=== PATIENT | female | born 1995 | race American Indian/Alaskan Native ===

== ENCOUNTER 2018-11-21 20:11 | Emergency (ER) | payer OTHER ==
--- NOTE | 2018-11-21 20:24 | Emergency Department Report ---
Blank Doc - Documentation Documentation: This is a 23-year-old female that presents with pelvic pain, vaginal discharge and irritation. This initial assessment/diagnostic orders/clinical plan/treatment(s) is/are subject to change based on patient's health status, clinical progression and re- assessment by fellow clinical providers in the ED. Further treatment and workup at subsequent clinical providers discretion. Patient/guardians urged not to elope from the ED as their condition may be serious if not clinically assessed and managed. Initial orders include: 1- Patient sent to [facility] for further evaluation and treatment 2- UA 3- wet prep
[2018-11-21 21:08] LABS: HCG Qualitative,Urine Positive (Negative)
[2018-11-21 21:14] LABS: Bacteria,Urine 1+ /HPF (Negative); Bilirubin,Urine NEG (Negative); Blood,Urine NEG (Negative); Color,Urine Yellow (Yellow); Mucus,Urine 3+ /HPF; Protein,Urine <15 mg/dL mg/dL (Negative)
--- NOTE | 2018-11-21 22:37 | Emergency Department Report ---
ED General Adult HPI - General Chief complaint: Abdominal Pain Stated complaint: ABDOMINAL PAIN Time Seen by Provider: 11/21/18 20:22 Source: patient Mode of arrival: Ambulatory Limitations: No Limitations - History of Present Illness Initial comments: Pt is a 23 yo female who presents to the ED with c/o N/V that began a couple of days ago. She also has suprapubic pressure. The patient is concerned she is and states her LNMP was in September. The patient also says that she has had green/clear discharge. She denies any abd pain, urinary sx or fever. The patient is sexually active and does not use protection. MD Complaint: N/V Onset/Timin -: days(s) Treatments Prior to Arrival: none - Related Data Previous Rx's Medication Instructions Recorded Last Taken Type Vit No.130/Iron/Folic 1 each PO DAILY #90 tablet 11/22/18 Unknown Rx [ Tablet] metroNIDAZOLE [Flagyl] 500 mg PO BID 7 Days #14 tab 11/22/18 Unknown Rx Allergies Allergy/AdvReac Type Severity Reaction Status Date / Time No Known Allergies Allergy Unverified 11/21/18 20:27 ED Review of Systems ROS: Stated complaint: ABDOMINAL PAIN Other details as noted in HPI Comment: All other systems reviewed and negative ED Past Medical Hx - Past Medical History Previous Medical History?: No - Surgical History Past Surgical History?: No - Social History Smoking Status: Never Smoker Substance Use Type: None - Medications Home Medications: Home Medications Medication Instructions Recorded Confirmed Last Taken Type Vit No.130/Iron/Folic 1 each PO DAILY #90 tablet 11/22/18 Unknown Rx [ Tablet] metroNIDAZOLE [Flagyl] 500 mg PO BID 7 Days #14 tab 11/22/18 Unknown Rx ED Physical Exam - General Limitations: No Limitations General appearance: alert, in no apparent distress - Head Head exam: Present: atraumatic, normocephalic - Eye Eye exam: Present: normal appearance - ENT ENT exam: Present: mucous membranes moist - Respiratory Respiratory exam: Present: normal lung sounds bilaterally. Absent: respiratory distress, wheezes, rales, rhonchi, stridor, chest wall tenderness, decreased breath sounds, prolonged expiratory - Cardiovascular Cardiovascular Exam: Present: regular rate, normal rhythm. Absent: systolic murmur, rubs, gallop - GI/Abdominal GI/Abdominal exam: Present: soft, normal bowel sounds. Absent: distended, te nderness, guarding, rebound, rigid - Speculum exam: Present: vaginal discharge, cervical discharge (moderate amount green/white, foul odor, cervix normal appearance), other (RN present during pelvic examination ). Absent: erythema, vaginal bleeding, foreign body, laceration Bi-manual exam: Present: normal bi-manual exam. Absent: cervical motion tendernes, adnexal tenderness, adnexal mass, uterine enlargement - Neurological Exam Neurological exam: Present: alert, oriented X3 - Psychiatric Psychiatric exam: Present: normal affect, normal mood ED Course Vital Signs 11/21/18 11/21/18 11/22/18 20:21 23:59 02:13 Temperature 99 F 98.4 F Pulse Rate 64 69 54 L Respiratory 16 16 16 Rate Blood Pressure 104/54 Blood Pressure 95/62 103/53 [Right] O2 Sat by Pulse 100 100 96 Oximetry ED Medical Decision Making - Lab Data Laboratory Results - last 24 hr 11/21/18 11/21/18 20:20 23:01 HCG, Quant 4138 H Urine Color Yellow Urine Turbidity Clear Urine pH 5.0 Ur Specific [place] 1.027 Urine Protein <15 mg/dl Urine Glucose (UA) Neg Urine Ketones Neg Urine Blood Neg Urine Nitrite Neg Ur Reducing Substances Not Reportable Urine Bilirubin Neg Urine Ictotest Not Reportable Urine Urobilinogen 2.0 Ur Leukocyte Esterase Neg Urine WBC (Auto) 2.0 Urine RBC (Auto) 2.0 U Epithel Cells (Auto) 3.0 Urine Bacteria (Auto) 1+ Urine Mucus 3+ Urine HCG, Qual Positive A - Radiology Data Radiology results: report reviewed, image reviewed transvaginal US: The myometrium appears uniform. There is an intrauterine gestational sac. A small yolk sac is visible. The mean gestational sac diameter is 7.6 mm. This indicates a menstrual age of 5 weeks 4 days. The estimated date of confinement is 07/20/2019. The right ovary appears normal in size and has normal color flow signal. The left ovary appears normal in size and also has normal color flow signal. There are small follicles in the left ovary. - Medical Decision Making Pt presents with N/V, suprapubic pressure, vaginal discharge, and concern for . test was positive, hcg quant ordered as well which was also positive, OB US was performed including transvaginal, pt is approximately 5 weeks with intrauterine gestational sac present and yolk sac. Wet prep showed presence of clue cells, pt was given dose of flagyl in the ED and given prescription, also pt given prescription for vitamins. Pt advised to follow up with OB doctor in the next couple of days. Critical care attestation.: If time is entered above; I have spent that time in minutes in the direct care of this critically ill patient, excluding procedure time. ED Disposition Clinical Impression: Bacterial vaginosis, test positive, with 5 completed weeks gestation Disposition: - TO HOME OR SELFCARE Is pt being admited?: No Does the pt Need Aspirin: No Condition: Stable Instructions: (ED), Bacterial Vaginosis (ED) Additional Instructions: Follow up with OB in the next couple of days. Take all medication as prescribed. Do not drink alcohol while taking medication or while . Prescriptions: metroNIDAZOLE [Flagyl] 500 mg PO BID 7 Days #14 tab Vit No.130/Iron/Folic [ Tablet] 1 each PO DAILY #90 tablet Referrals: [facility] MD THONY [Primary Care Provider] - 3-5 Days Forms: STI Treatment and Prevention Time of Disposition: 01:46 Print Language: GREENLANDIC
--- NOTE | 2018-11-21 23:58 | Ultrasound Report ---
PROCEDURE: Transabdominal obstetrical ultrasound. TECHNIQUE: Real-time transabdominal sonography of the uterus, placenta, amniotic fluid, adnexa, and fetus was performed with image documentation. Measurements were obtained to determine age/size. M-mode Doppler was used to document heartbeat. ADDITIONAL GESTATION: None. HISTORY: (+) urine preg COMPARISONS: None. FINDINGS: Image quality is decreased because the patient's bladder was not fully distended. The uterus measures 8.6 cm x 5.0 cm x 4.9 cm. The myometrium appears fairly uniform. There is a small intrauterine gesta tional sac. The mean gestational sac diameter measures 7.9 mm. This indicates a menstrual age of 5 we eks 4 days. The estimated date of confinement is 07/20/2019. A definite pole was not visible. Tr ansvaginal scanning may be useful. The right ovary appears normal. There is normal color flow signal. The left ovary is not identified. IMPRESSION: Early intrauterine gestational sac. This document is electronically signed by Dexter Jane MD., November 21 2018 11:57:05 PM ET
--- NOTE | 2018-11-22 00:02 | Ultrasound Report ---
PROCEDURE: Transvaginal obstetrical ultrasound. TECHNIQUE: Real-time transvaginal sonography of the uterus, placenta, amniotic fluid, adnexa, and fe tus was performed with image documentation. Measurements were obtained to determine age/size. M -mode Doppler was used to document heartbeat. HISTORY: Pelvic pain. COMPARISONS: None. FINDINGS: The myometrium appears uniform. There is an intrauterine gestational sac. A small yolk sac is visible . The mean gestational sac diameter is 7.6 mm. This indicates a menstrual age of 5 weeks 4 days. The estimated date of confinement is 07/20/2019. The right ovary appears normal in size and has normal col or flow signal. The left ovary appears normal in size and also has normal color flow signal. There ar e small follicles in the left ovary. IMPRESSION: Early intrauterine gestational sac. Follow-up recommended. This document is electronically signed by Dexter Jane MD., November 22 2018 12:00:18 AM ET
[2018-11-22] MEDS ORDERED: FLAGYL PO ONE (01:51)
[2018-11-22 02:14] VITALS: BP 103/53
== END 2018-11-22 02:13 | disposition home or self-care (01) ==
LOC: ED 20:11
DX: O23.591 Infection of other part of genital tract in pregnancy, first trimester (principal); B96.89 Other specified bacterial agents as the cause of diseases classified elsewhere; O21.8 Other vomiting complicating pregnancy; Z3A.01 Less than 8 weeks gestation of pregnancy
CPT/HCPCS: 36415; 76801; 76817; 81001; 81025; 84702; 87210; 87591

== ENCOUNTER 2018-11-29 23:04 | Emergency (ER) | payer OTHER ==
[2018-11-29 23:13] VITALS: BP 99/56
[2018-11-30] MEDS ORDERED: BENADRYL PO ONE (01:01)
[2018-11-30] MEDS ORDERED: PEPCID PO ONE (01:01)
[2018-11-30] MEDS ORDERED: DECADRON IM ONE (01:01)
--- NOTE | 2018-11-30 01:07 | Emergency Department Report ---
ED Rash HPI - HPI Chief Complaint: Skin Rash Stated Complaint: 7 WEEKS HIVES Time Seen by Provider: 11/30/18 00:53 Rash Symptoms: Yes Itching, No Facial Swelling, No Tongue/Oral Swelling, No Breathing Difficulties, No Choking Sensation, No Wheezing/Dyspnea, No Peeling, No Blistering, No Fever, No Lightheaded Severity: moderate Other History: Patient. She is is is being is Female who is 7 weeks who presents for allergic reaction states subjective hives with erythema dry. Skin the chest bilateral upper extremities show ED Review of Systems ROS: Stated complaint: 7 WEEKS HIVES Other details as noted in HPI Constitutional: denies: chills, fever Eyes: denies: eye pain, eye discharge, vision change ENT: as per HPI (is). denies: ear pain, throat pain Respiratory: denies: cough, shortness of breath, wheezing Cardiovascular: denies: chest pain, palpitations Endocrine: no symptoms reported Gastrointestinal: denies: abdominal pain, nausea, diarrhea Genitourinary: denies: urgency, dysuria, discharge Musculoskeletal: denies: back pain, joint swelling, arthralgia Skin: rash, pruritus. denies: lesions Neurological: denies: headache, weakness, paresthesias Psychiatric: denies: anxiety, depression Hematological/Lymphatic: denies: easy bleeding, easy bruising ED Past Medical Hx - Past Medical History Previous Medical History?: No - Surgical History Past Surgical History?: No - Social History Smoking Status: Never Smoker Substance Use Type: None - Medications Home Medications: Home Medications Medication Instructions Recorded Confirmed Last Taken Type Vit No.130/Iron/Folic 1 each PO DAILY #90 tablet 11/22/18 Unknown Rx [ Tablet] metroNIDAZOLE [Flagyl] 500 mg PO BID 7 Days #14 tab 11/22/18 Unknown Rx EPINEPHrine [Epipen 2-Tony] 0.3 mg IJ PRN PRN #1 auto.injct 11/30/18 Unknown Rx Famotidine [Pepcid] 20 mg PO BID PRN #30 tablet 11/30/18 Unknown Rx Triamcinolone Aceton 0.1% (Nf) 1 applic TP BID 14 Days #1 tube 11/30/18 Unknown Rx [Kenalog (NF)] diphenhydrAMINE [Benadryl CAP] 25 mg PO Q6HR PRN #30 capsule 11/30/18 Unknown Rx predniSONE [Deltasone] 40 mg PO QDAY 5 Days #10 tab 11/30/18 Unknown Rx Rash Exam - Exam General: Vital signs noted. No distress. Alert and acting appropriately. HEENT: No Periorbital Edema, No Conjuctival Injection, No Chemosis, No Perioral Edema, No Tongue Edema, No Uvular Edema, No Compromised Airway, No Drooling Lungs: Yes Good Air Exchange (Normal Breath Sounds), No Wheezes, No Ronchi, No Stridor, No Cough, No Labored Respirations, No Retractions, No Use of Accessory Muscles, No Other Abnormal Lung Sounds Heart: Yes Regular, No Murmur (normal limits because) Skin: Yes Urticarial Rash, Yes Excoriations, Yes Erythema, No Maculopapular Rash, No Morbilliform rash, No Bulla(e), No Weeping, No Tenderness, No Edema, No Encrustations, No Other Other: Positive: Abdomen Normal, Neurologic Normal, Musculoskeletal Normal ED Course Vital Signs 11/29/18 11/29/18 23:11 23:22 Temperature 99.1 F 99.1 F Pulse Rate 83 84 Respiratory 18 Rate Blood Pressure 99/56 99/56 O2 Sat by Pulse 100 Oximetry ED Medical Decision Making - Medical Decision Making this is likely contact dermatitis plan: prednisone, benadryl, pepcid, follow up with dermatology in 2 days pt given instruction on epipen, has stefan of [facility] advised to present to walk in center in 2 days for inhouse referral to Dermatology clinic as fastest process to see [facility], pt give locar referal to Dermatology [facility] will call in two days to confirm appointment. Critical care attestation.: If time is entered above; I have spent that time in minutes in the direct care of this critically ill patient, excluding procedure time. ED Disposition Clinical Impression: Contact dermatitis Qualifiers: Contact dermatitis type: allergic Contact dermatitis trigger: unspecified trigger Qualified Code(s): L23.9 - Allergic contact dermatitis, unspecified cause Disposition: DC-01 TO HOME OR SELFCARE Is pt being admited?: No Does the pt Need Aspirin: No Condition: Stable Instructions: Contact Dermatitis (ED) Prescriptions: diphenhydrAMINE [Benadryl CAP] 25 mg PO Q6HR PRN #30 capsule PRN Reason: allergy symptoms itching predniSONE [Deltasone] 40 mg PO QDAY 5 Days #10 tab EPINEPHrine [Epipen 2-Tony] 0.3 mg IJ PRN PRN #1 auto.injct PRN Reason: sever allergy symptoms Triamcinolone Aceton 0.1% (Nf) [Kenalog (NF)] 1 applic TP BID 14 Days #1 tube Famotidine [Pepcid] 20 mg PO BID PRN #30 tablet PRN Reason: allergy symptoms Referrals: [facility] THONY [Primary Care Provider] - 3-5 Days ZACHERY GAINES MD [Staff Physician] - 3-5 Days
== END 2018-11-30 01:57 | disposition home or self-care (01) ==
LOC: ED 23:04
DX: O26.891 Other specified pregnancy related conditions, first trimester (principal); L25.9 Unspecified contact dermatitis, unspecified cause; Z3A.01 Less than 8 weeks gestation of pregnancy
CPT/HCPCS: 99282

== ENCOUNTER 2019-02-06 01:02 | Emergency (ER) | payer OTHER ==
[2019-02-06 01:46] LABS: Basophils % (Auto) 0.5 % (0.0-1.8); Eosinophils # (Auto) 0.2 K/mm3 (0.0-0.4); Eosinophils % (Auto) 3.3 % (0.0-4.3); Hematocrit 26.6 % (30.3-42.9); Hemoglobin 8.8 gm/dl (10.1-14.3); Lymphocytes # (Auto) 1.5 K/mm3 (1.2-5.4); Lymphocytes % (Auto) 29.4 % (13.4-35.0); Mean Corpuscular HGB Conc 33 % (30-34); Mean Corpuscular Volume 81 fl (79-97); Monocytes # (Auto) 0.3 K/mm3 (0.0-0.8); Monocytes % (Auto) 5.9 % (0.0-7.3); Platelet Count 186 K/mm3 (140-440); Red Cell Distribution Width 16.9 % (13.2-15.2)
[2019-02-06 01:49] LABS: Bilirubin,Urine NEG (Negative); Blood,Urine NEG (Negative); Color,Urine Yellow (Yellow); Mucus,Urine 3+ /HPF; Protein,Urine <15 mg/dL mg/dL (Negative)
[2019-02-06 02:09] LABS: Alanine Aminotransferase 6 units/L (7-56); Albumin 3.4 g/dL (3.9-5); Calcium 8.4 mg/dL (8.4-10.2); Hemolysis Index 0
[2019-02-06 02:54] LABS: BUN/Creatinine Ratio 18; Blood Urea Nitrogen 9 mg/dL (7-17)
[2019-02-06] MEDS ORDERED: TYLENOL PO ONE (04:05)
[2019-02-06 05:05] VITALS: BP 107/52
--- NOTE | 2019-02-06 05:06 | Ultrasound Report ---
PROCEDURE: US OB >= 14 WEEKS FETUS TECHNIQUE: Real-time transabdominal sonography of the uterus, placenta, amniotic fluid, adnexa, and fetus was performed with image documentation. Measurements were obtained to determine age/size. M-mode Doppler was used to document heartbeat. ADDITIONAL GESTATION: None. HISTORY: preg, abd pain COMPARISONS: 11/21/2018 . FINDINGS: There is a single viable intrauterine in cephalic presentation with an estimated gestationa l age of 16 weeks 5 days based on sonographic criteria. The heart rate is 143 BPM. The cervix i s closed. The cervical length is 6.4 cm. The placenta is anterior and low-lying in position. It is gr dereck 0. The amniotic fluid volume is grossly normal. A complete survey of organs was not obtaine d. The EDC is 07/19/2019. IMPRESSION: Single live intrauterine gestation at approximately 16 weeks 5 days. . EDC by US 019. The placenta is anterior and low-lying in position. . This document is electronically signed by Karri Fabian MD., Feb 06 2019 05:04:42 AM ET
--- NOTE | 2019-02-06 05:30 | Emergency Department Report ---
HPI - General Chief Complaint: Abdominal Pain Time Seen by Provider: 02/06/19 03:50 - HPI HPI: 23-year-old -[place] female presents to the emergency department with a complaint of some lower abdominal and/or pelvic discomfort, along with some malodorous white vaginal discharge, while being . The patient is unsure exactly how far along she is with this but her last menstrual cycle was October 12. With this she is with 1 previous . She is on vitamins. She does not have any [facility] at this time. She has not taken anything for her symptoms prior to arrival. No recent travel or sick contacts at home. She denies any past history of any STDs. ED Past Medical Hx - Past Medical History Previous Medical History?: No - Surgical History Past Surgical History?: No - Social History Smoking Status: Current Every Day Smoker Substance Use Type: None - Medications Home Medications: Home Medications Medication Instructions Recorded Confirmed Last Taken Type Vit No.130/Iron/Folic 1 each PO DAILY #90 tablet 11/22/18 Unknown Rx [ Tablet] metroNIDAZOLE [Flagyl] 500 mg PO BID 7 Days #14 tab 11/22/18 Unknown Rx EPINEPHrine [Epipen 2-Tony] 0.3 mg IJ PRN PRN #1 auto.injct 11/30/18 Unknown Rx Famotidine [Pepcid] 20 mg PO BID PRN #30 tablet 11/30/18 Unknown Rx Triamcinolone Aceton 0.1% (Nf) 1 applic TP BID 14 Days #1 tube 11/30/18 Unknown Rx [Kenalog (NF)] diphenhydrAMINE [Benadryl CAP] 25 mg PO Q6HR PRN #30 capsule 11/30/18 Unknown Rx predniSONE [Deltasone] 40 mg PO QDAY 5 Days #10 tab 11/30/18 Unknown Rx Clindamycin 2% [Clindamycin 2% VAG 1 applicatio VG QHS 7 Days cream 02/06/19 Unknown Rx CREAM] ED Review of Systems ROS: Stated complaint: ABD PAIN/DISCHARGE Other details as noted in HPI Constitutional: denies: chills, fever Eyes: denies: eye pain, vision change ENT: denies: ear pain, throat pain Respiratory: denies: cough, shortness of breath Cardiovascular: denies: chest pain, palpitations Gastrointestinal: abdominal pain. denies: vomiting Genitourinary: discharge. denies: dysuria Musculoskeletal: denies: back pain, arthralgia Skin: denies: rash, lesions Neurological: denies: headache, weakness Physical Exam - Physical Exam Vital Signs: Vital Signs 02/06/19 02/06/19 01:05 05:04 Temperature 98.6 F 98.1 F Pulse Rate 85 72 Respiratory 18 16 Rate Blood Pressure 104/64 Blood Pressure 107/52 [Right] O2 Sat by Pulse 100 99 Oximetry Physical Exam: GENERAL: The patient is well-developed well-nourished. HENT: Normocephalic. Atraumatic. Patient has moist mucous membranes. EYES: Extraocular motions are intact. NECK: Supple. Trachea is midline. CHEST/LUNGS: Clear to auscultation. There is no respiratory distress noted. HEART/CARDIOVASCULAR: Regular. There is no tachycardia. There is no murmur. ABDOMEN: Abdomen is soft. Patient has normal bowel sounds. There is no abdominal distention. SKIN: Skin is warm and dry. NEURO: The patient is awake, alert, and oriented. The patient is cooperative. The patient has no focal neurologic deficits. The patient has normal speech. MUSCULOSKELETAL: There is no tenderness or deformity. There is no limitation range of motion. There is no evidence of acute injury. : There is a moderate amount of white malodorous discharge seen within the vagina. No vaginal bleeding seen. ED Course Vital Signs 02/06/19 02/06/19 01:05 05:04 Temperature 98.6 F 98.1 F Pulse Rate 85 72 Respiratory 18 16 Rate Blood Pressure 104/64 Blood Pressure 107/52 [Right] O2 Sat by Pulse 100 99 Oximetry ED Medical Decision Making - Lab Data Result diagrams: 02/06/19 01:35 02/06/19 01:35 - Radiology Data Radiology results: report reviewed PROCEDURE: US OB >= 14 WEEKS FETUS TECHNIQUE: Real-time transabdominal sonography of the uterus, placenta, amniotic fluid, adnexa, and fetus was performed with image documentation. Measurements were obtained to determine age/size. M-mode Doppler was used to document heartbeat. ADDITIONAL GESTATION: None. HISTORY: preg, abd pain COMPARISONS: 11/21/2018 . FINDINGS: There is a single viable intrauterine in cephalic presentation with an estimated gestational age of 16 weeks 5 days based on sonographic criteria. The heart rate is 143 BPM. The cervix is closed. The cervical length is 6.4 cm. The placenta is anterior and low-lying in position. It is grade 0. The amniotic fluid volume is grossly normal. A complete survey of organs was not obtained. The EDC is 07/19/2019. IMPRESSION: Single live intrauterine gestation at approximately 16 weeks 5 days. . EDC by US 07/19/2019. The placenta is anterior and low-lying in position. . This document is electronically signed by Karri Fabian MD., Feb 06 2019 05:04:42 AM ET Transcribed By: RB Dictated By: KARRI FABIAN MD Electronically Authenticated By: KARRI FABIAN MD Signed Date/Time: 02/06/19 7680 - Medical Decision Making Patient presents with some lower abdominal and pelvic pain, along with some malodorous discharge, while . Wet prep was positive for BV. She will be treated with clindamycin vaginal cream. Gonorrhea and chlamydia has been sent out, and if positive the patient will be contacted and new prescriptions will be added. There has been no vaginal bleeding. She was given some Tylenol for discomfort. Ultrasound shows a live intrauterine at about 16 weeks. Vital signs stable throughout her ED course. The patient will be discharged home to follow up with [facility] and has been given multiple referrals. She will return to the ER with any worsening of her symptoms or any acute distress. - Differential Diagnosis BV, , UTI Critical Care Time: No Critical care attestation.: If time is entered above; I have spent that time in minutes in the direct care of this critically ill patient, excluding procedure time. ED Disposition Clinical Impression: Bacterial vaginosis Qualifiers: Weeks of gestation: 16 weeks Qualified Code(s): Z3A.16 - 16 weeks gestation of Disposition: DC-01 TO HOME OR SELFCARE Is pt being admited?: No Condition: Stable Instructions: (ED), Bacterial Vaginosis (ED) Additional Instructions: Please follow up with an [facility]. Return to the emergency Department with any worsening of your symptoms or any acute distress. Prescriptions: Clindamycin 2% [Clindamycin 2% VAG CREAM] 1 applicatio VG QHS 7 Days cream Referrals: [facility] [Provider Group] - 3-5 Days [facility] [Provider Group] - 3-5 Days [facility] [Provider Group] - 3-5 Days Time of Disposition: 05:31
== END 2019-02-06 05:55 | disposition home or self-care (01) ==
LOC: ED 01:02
DX: O23.592 Infection of other part of genital tract in pregnancy, second trimester (principal); B96.89 Other specified bacterial agents as the cause of diseases classified elsewhere; O99.332 Smoking (tobacco) complicating pregnancy, second trimester; F17.200 Nicotine dependence, unspecified, uncomplicated; Z3A.16 16 weeks gestation of pregnancy
CPT/HCPCS: 36415; 76805; 80053; 81001; 84702; 84703; 85025; 87210; 87591

== ENCOUNTER 2019-02-13 04:28 | Emergency (ER) | payer MEDICAID, OTHER ==
[2019-02-13] MEDS ORDERED: ALUM-MAG HYDROX-SIMETH 200-200-20MG/5ML PO ONE (05:08)
[2019-02-13 05:32] LABS: Basophils % (Auto) 0.4 % (0.0-1.8); Eosinophils # (Auto) 0.2 K/mm3 (0.0-0.4); Eosinophils % (Auto) 3.6 % (0.0-4.3); Hematocrit 25.4 % (30.3-42.9); Hemoglobin 8.5 gm/dl (10.1-14.3); Lymphocytes # (Auto) 1.6 K/mm3 (1.2-5.4); Lymphocytes % (Auto) 30.1 % (13.4-35.0); Mean Corpuscular HGB Conc 33 % (30-34); Mean Corpuscular Volume 81 fl (79-97); Monocytes # (Auto) 0.3 K/mm3 (0.0-0.8); Monocytes % (Auto) 5.9 % (0.0-7.3); Platelet Count 167 K/mm3 (140-440); Red Blood Count 3.14 M/mm3 (3.65-5.03); Red Cell Distribution Width 16.6 % (13.2-15.2)
[2019-02-13 05:50] LABS: Alanine Aminotransferase 6 units/L (7-56); Albumin 3.3 g/dL (3.9-5); BUN/Creatinine Ratio 25; Blood Urea Nitrogen 10 mg/dL (7-17); Calcium 7.9 mg/dL (8.4-10.2); Hemolysis Index 0
--- NOTE | 2019-02-13 06:12 | XRay Report ---
PROCEDURE: XR CHEST 1V AP TECHNIQUE: Chest radiograph single view. HISTORY: chest pain COMPARISONS: None . FINDINGS: No mediastinal shift. Cardiac silhouette is not enlarged. No pneumothorax, effusion, or focal pulmona ry opacity identified. No acute skeletal findings. IMPRESSION: No acute pulmonary finding identified. This document is electronically signed by Dexter Ramirez MD., Feb 13 2019 06:09:48 AM ET
--- NOTE | 2019-02-13 06:36 | Emergency Department Report ---
ED General Adult HPI - General Chief complaint: Chest Pain Stated complaint: CHEST PAIN, BACK PAIN, WEAKNESS Time Seen by Provider: 02/13/19 06:09 Source: patient Mode of arrival: Stretcher Limitations: No Limitations - History of Present Illness Initial comments: Patient is a 23-year-old female presents to emergency room with right-side chest pain and back pain 10 hours. Patient states the pain is a 10 out of 10. Patient states the pain is better with rest and worse with movement of her right arm and back. Patient states she is 16 weeks . Patient states she is already seeing DISPENSING OPERATOR. Patient denies shortness of breath. Patient states the pain is nonradiating. Patient denies recent exercise or strenuous activity exercises. Patient denies vaginal bleeding. Patient denies abdominal pain. Patient denies nausea vomiting at this time but she did have one episode of vomiting upon arrival. She is a -: Sudden Location: chest, back Radiation: non-radiation Severity scale (0 -10): 10 Quality: stabbing Consistency: constant Improves with: rest Worsens with: movement Associated Symptoms: chest pain, nausea/vomiting. denies: confusion, cough, diaphoresis, fever/chills, headaches, loss of appetite, malaise, rash, seizure, shortness of breath, syncope, weakness Treatments Prior to Arrival: none - Related Data Previous Rx's Medication Instructions Recorded Last Taken Type Vit No.130/Iron/Folic 1 each PO DAILY #90 tablet 11/22/18 Unknown Rx [ Tablet] metroNIDAZOLE [Flagyl] 500 mg PO BID 7 Days #14 tab 11/22/18 Unknown Rx EPINEPHrine [Epipen 2-Tony] 0.3 mg IJ PRN PRN #1 auto.injct 11/30/18 Unknown Rx Famotidine [Pepcid] 20 mg PO BID PRN #30 tablet 11/30/18 Unknown Rx Triamcinolone Aceton 0.1% (Nf) 1 applic TP BID 14 Days #1 tube 11/30/18 Unknown Rx [Kenalog (NF)] diphenhydrAMINE [Benadryl CAP] 25 mg PO Q6HR PRN #30 capsule 11/30/18 Unknown Rx predniSONE [Deltasone] 40 mg PO QDAY 5 Days #10 tab 11/30/18 Unknown Rx Clindamycin 2% [Clindamycin 2% VAG 1 applicatio VG QHS 7 Days cream 02/06/19 Unknown Rx CREAM] Ferrous Sulfate [Feosol 325 MG tab] 325 mg PO BID 30 Days #60 tablet 02/13/19 Unknown Rx Allergies Allergy/AdvReac Type Severity Reaction Status Date / Time No Known Allergies Allergy Unverified 11/21/18 20:27 ED Review of Systems ROS: Stated complaint: CHEST PAIN, BACK PAIN, WEAKNESS Other details as noted in HPI Constitutional: denies: chills, fever Eyes: denies: eye pain, eye discharge, vision change ENT: denies: ear pain, throat pain Respiratory: denies: cough, shortness of breath, wheezing Cardiovascular: chest pain. denies: palpitations Endocrine: no symptoms reported Gastrointestinal: denies: abdominal pain, nausea, diarrhea Genitourinary: denies: urgency, dysuria, discharge Musculoskeletal: back pain. denies: joint swelling, arthralgia Skin: denies: rash, lesions Neurological: denies: headache, weakness, paresthesias Psychiatric: denies: anxiety, depression Hematological/Lymphatic: denies: easy bleeding, easy bruising ED Past Medical Hx - Past Medical History Previous Medical History?: No - Surgical History Past Surgical History?: No - Family History Family history: no significant - Social History Smoking Status: Never Smoker Substance Use Type: None - Medications Home Medications: Home Medications Medication Instructions Recorded Confirmed Last Taken Type Vit No.130/Iron/Folic 1 each PO DAILY #90 tablet 11/22/18 Unknown Rx [ Tablet] metroNIDAZOLE [Flagyl] 500 mg PO BID 7 Days #14 tab 11/22/18 Unknown Rx EPINEPHrine [Epipen 2-Tony] 0.3 mg IJ PRN PRN #1 auto.injct 11/30/18 Unknown Rx Famotidine [Pepcid] 20 mg PO BID PRN #30 tablet 11/30/18 Unknown Rx Triamcinolone Aceton 0.1% (Nf) 1 applic TP BID 14 Days #1 tube 11/30/18 Unknown Rx [Kenalog (NF)] diphenhydrAMINE [Benadryl CAP] 25 mg PO Q6HR PRN #30 capsule 11/30/18 Unknown Rx predniSONE [Deltasone] 40 mg PO QDAY 5 Days #10 tab 11/30/18 Unknown Rx Clindamycin 2% [Clindamycin 2% VAG 1 applicatio VG QHS 7 Days cream 02/06/19 Unknown Rx CREAM] Ferrous Sulfate [Feosol 325 MG tab] 325 mg PO BID 30 Days #60 tablet 02/13/19 Unknown Rx ED Physical Exam - General Limitations: No Limitations General appearance: alert, in no apparent distress - Head Head exam: Present: atraumatic, normocephalic - Eye Eye exam: Present: normal appearance - ENT ENT exam: Present: mucous membranes moist - Neck Neck exam: Present: normal inspection - Respiratory Respiratory exam: Present: normal lung sounds bilaterally, chest wall tenderness (right-sided chest tenderness and reproduces symptoms. ). Absent: respiratory distress, wheezes, rales, rhonchi - Cardiovascular Cardiovascular Exam: Present: regular rate, normal rhythm. Absent: systolic murmur, diastolic murmur, rubs, gallop - GI/Abdominal GI/Abdominal exam: Present: soft, normal bowel sounds. Absent: distended, tenderness, guarding, rebound - Rectal Rectal exam: Present: deferred - Extremities Exam Extremities exam: Present: normal inspection, full ROM. Absent: tenderness - Back Exam Back exam: Present: normal inspection, full ROM, paraspinal tenderness - Neurological Exam Neurological exam: Present: alert, oriented X3 - Psychiatric Psychiatric exam: Present: normal affect, normal mood - Skin Skin exam: Present: warm, dry, intact, normal color. Absent: rash ED Course Vital Signs 02/13/19 02/13/19 02/13/19 04:45 04:58 08:26 Temperature 97.9 F 98.5 F Pulse Rate 74 70 Respiratory 15 15 20 Rate Blood Pressure 99/63 Blood Pressure 99/63 105/56 [Right] O2 Sat by Pulse 99 99 97 Oximetry - Reevaluation(s) Reevaluation #1: Discussed all results with patient. Patient is stable for discharge. Patient will be discharged home.. Patient agrees to plan of care. Patient given discharge instructions. patient voiced understanding of discharge instructions. She states she does not want any narcotic pain medications since she is . Patient states she would rather just take Tylenol. 02/13/19 06:35 ED Medical Decision Making - Lab Data Result diagrams: 02/13/19 05:22 02/13/19 05:22 - EKG Data -: EKG Interpreted by Me EKG shows normal: sinus rhythm, axis, intervals, QRS complexes, ST-T waves Rate: normal - Radiology Data Radiology results: report reviewed, image reviewed PROCEDURE: XR CHEST 1V AP TECHNIQUE: Chest radiograph single view. HISTORY: chest pain COMPARISONS: None . FINDINGS: No mediastinal shift. Cardiac silhouette is not enlarged. No pneumothorax, effusion, or focal pulmonary opacity identified. No acute skeletal findings. IMPRESSION: No acute pulmonary finding identified. - Medical Decision Making Patient is a 23-year-old female that presents emergency room with chest and back pain. Patient's chest pain is reproducible on exam. Patient's back pain shows tenderness in the paraspinal muscles consistent with a muscle spasm and a upper back strain. Patient's chest pain is consistent with a chest sprain. Patient's pain appears to be musculoskeletal. Patient's EKG is negative. Patient's labs are unremarkable except for anemia. She will placed on iron pills patient advised to take a vitamin. - Differential Diagnosis back pain back sprain. Chest pain. Chest sprain. Critical care attestation.: If time is entered above; I have spent that time in minutes in the direct care of this critically ill patient, excluding procedure time. ED Disposition Clinical Impression: Thoracic sprain, Right-sided chest pain Back pain Qualifiers: Back pain location: thoracic back pain Chronicity: acute Back pain laterality: midline Qualified Code(s): M54.6 - Pain in thoracic spine Sprain of chest wall Qualifiers: Encounter type: initial encounter Qualified Code(s): S23.8XXA - Sprain of other specified parts of thorax, initial encounter Disposition: TO HOME OR SELFCARE Is pt being admited?: No Does the pt Need Aspirin: No Condition: Stable Instructions: Chest Pain (ED), Costochondritis (ED), Low Back Strain (ED), Thoracic Pain (ED), Back Pain (ED) Additional Instructions: Patient to follow-up with primary care in 2-3 days. Patient to follow up with DISPENSING OPERATOR in 2-3 days. Patient to follow-up with orthopedist in 2-3 days. Patient to take vitamin. Patient to start iron tabs. Patient to take Tylenol when necessary for pain. Patient to return to ER if condition worsens. Patient to take meds as directed. Patient to increase water. Patient to rest. Prescriptions: Ferrous Sulfate [Feosol 325 MG tab] 325 mg PO BID 30 Days #60 tablet Referrals: MARYANN FRIEDMAN MD [Primary Care Provider] - 2-3 Days Time of Disposition: 06:40
[2019-02-13 08:27] VITALS: BP 105/56
== END 2019-02-13 08:26 | disposition home or self-care (01) ==
LOC: ED 04:28
DX: O9A.212 Injury, poisoning and certain other consequences of external causes complicating pregnancy, second trimester (principal); S23.8XXA Sprain of other specified parts of thorax, initial encounter; O21.9 Vomiting of pregnancy, unspecified; Z3A.16 16 weeks gestation of pregnancy
CPT/HCPCS: 36415; 71045; 80053; 83690; 84484; 85025; 93005; 93010; 99284

== ENCOUNTER 2019-03-11 10:40 | Emergency (ER) | payer MEDICAID, OTHER | END 2019-03-11 15:05 | disposition left against medical advice (07) | LOC: ED 10:40 | DX: R10.9 Unspecified abdominal pain (principal); Z53.21 Procedure and treatment not carried out due to patient leaving prior to being seen by health care provider ==

== ENCOUNTER 2019-03-22 17:52 | Outpatient (CLI) | payer MEDICAID ==
[2019-03-22 18:53] LABS: Bacteria,Urine 2+ /HPF (Negative); Bilirubin,Urine NEG (Negative); Blood,Urine NEG (Negative); Color,Urine Yellow (Yellow); Mucus,Urine 3+ /HPF
== END 2019-03-22 18:40 | disposition home or self-care (01) ==
LOC: TRG 17:52
PROVIDERS: ATTEND Obstetrics & Gynecology
DX: O47.02 False labor before 37 completed weeks of gestation, second trimester (principal); Z3A.23 23 weeks gestation of pregnancy
CPT/HCPCS: 81001; 87086

== ENCOUNTER 2019-05-13 16:23 | Observation (INO) | payer MEDICAID ==
[2019-05-13 17:25] LABS: INR 1.12 (0.87-1.13)
[2019-05-13 17:27] LABS: Partial Thromboplastin Time 30.1 Sec. (24.2-36.6)
--- NOTE | 2019-05-13 19:14 | Ultrasound Report ---
US OB BPP wo non-stress, US OB limited INDICATION / CLINICAL INFORMATION: labor. COMPARISON: 02/06/2019 FINDINGS: Single, viable intrauterine in cephalic presentation. heart rate 143. Amniotic fluid volume is normal, with a fluid index of 17 cm. Biophysical profile: breathing movements: 2 body movements: 2 posture and tunnel: 2 Amniotic fluid volume: 2 Total score: 8 IMPRESSION: 1. Single, viable intrauterine , with biophysical profile score of 8 (normal). Signer Name: Mark Torres MD Signed: 05/13/2019 7:09 PM Workstation Name: [id number]
[2019-05-13] MEDS ORDERED: LACTATED RINGERS 1,000 ML IV ONE (19:29)
[2019-05-13 20:50] LABS: Hematocrit 22.9 % (30.3-42.9); Hemoglobin 7.4 gm/dl (10.1-14.3); Mean Corpuscular HGB Conc 32 % (30-34); Mean Corpuscular Volume 75 fl (79-97); Platelet Count 184 K/mm3 (140-440); Red Blood Count 3.04 M/mm3 (3.65-5.03); Red Cell Distribution Width 17.8 % (13.2-15.2)
[2019-05-13 21:11] LABS: Bilirubin,Urine NEG (Negative); Blood,Urine NEG (Negative); Color,Urine Yellow (Yellow); Mucus,Urine 3+ /HPF; Protein,Urine <15 mg/dL mg/dL (Negative)
[2019-05-13] MEDS: TYLENOL PO PRN (23:15)
--- NOTE | 2019-05-14 04:00 | Ultrasound Report ---
Limited OB ultrasound. 05/14/2019. HISTORY: Pain. Evaluate for obstruction. FINDINGS: Limited OB ultrasound is performed. A single viable intrauterine has heart tones are 128 bpm.A possible small marginal hemorrhage is present. Signer Name: Bandar Edward MD Signed: 05/14/2019 3:56 AM Workstation Name: [id number]
--- NOTE | 2019-05-14 08:55 | History and Physical Report ---
History of Present Illness Date of examination: 05/13/19 Date of admission: 05/13/19 19:46 Chief complaint: "I fell down 8 stairs yesterday, and my baby hasn't been moving since then." History of present illness: The patient is a 23 yo at 30 weeks EGA. She presents from the [place] [facility] office reporting absent movement and severe abdominal pain after falling down 8 wooden stairs yesterday. She fell on her abdomen and back. She states she reported to [facility] initially, where she was directed to her primary OB provider. She denies contractions, leaking fluid, or vaginal bleeding. She has received scant care at [facility]- a NOB visit at 21.3 wks, and an [facility] at 28.4 wks. She has been referred to [facility] for late care, anatomy scan, and hx contractions in previous pregnancies. Her course has been complicated by severe anemia, with hgb 8.2 on 03/11. 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 (not in this ) Social history: no significant social history - Obstetrical History Expected Date of Delivery: 07/19/19 Actual Gestation: 30 Week(s) 4 Day(s) : 7 Para: 5 Hx # Term Pregnancies: 5 Spontaneous Abortions: 1 Number of Living Children: 5 Medications and Allergies Allergies Allergy/AdvReac Type Severity Reaction Status Date / Time No Known Allergies Allergy Unverified 11/21/18 20:27 Home Medications Medication Instructions Recorded Confirmed Last Taken Type Vit No.130/Iron/Folic 1 each PO DAILY #90 tablet 11/22/18 Unknown Rx [ Tablet] metroNIDAZOLE [Flagyl] 500 mg PO BID 7 Days #14 tab 11/22/18 Unknown Rx EPINEPHrine [Epipen 2-Tony] 0.3 mg IJ PRN PRN #1 auto.injct 11/30/18 Unknown Rx Famotidine [Pepcid] 20 mg PO BID PRN #30 tablet 11/30/18 Unknown Rx Triamcinolone Aceton 0.1% (Nf) 1 applic TP BID 14 Days #1 tube 11/30/18 Unknown Rx [Kenalog (NF)] diphenhydrAMINE [Benadryl CAP] 25 mg PO Q6HR PRN #30 capsule 11/30/18 Unknown Rx predniSONE [Deltasone] 40 mg PO QDAY 5 Days #10 tab 11/30/18 Unknown Rx Clindamycin 2% [Clindamycin 2% VAG 1 applicatio VG QHS 7 Days cream 02/06/19 Unknown Rx CREAM] Ferrous Sulfate [Feosol 325 MG tab] 325 mg PO BID 30 Days #60 tablet 02/13/19 Unknown Rx Active Meds: Active Medications Acetaminophen (Tylenol) 1,000 mg PO Q6H PRN PRN Reason: Pain , Severe (7-10) Last Admin: 05/13/19 23:15 Dose: 1,000 mg Documented by: Lactated Ringer's (Lactated Ringers) 1,000 mls @ 125 mls/hr IV DIRECT TRISTA Review of Systems Eyes: no blurred vision Cardiovascular: no chest pain, no shortness of breath Gastrointestinal: abdominal pain, no nausea, no vomiting, no diarrhea, no constipation Genitourinary: no vaginal bleeding, no vaginal discharge, no leakage of fluid, no contractions Neurological: no head injury - Vital Signs Vital signs: Vital Signs Pulse BP 78 103/57 05/13/19 16:36 05/13/19 16:36 Temp Pulse Resp BP Pulse Ox 97.9 F 80 16 103/59 100 05/14/19 07:31 05/14/19 08:22 05/14/19 07:31 05/14/19 08:22 05/13/19 19:20 - Physical Exam Abdomen: Positive: tenderness Uterus: Positive: enlarged (gravid), normal contour Extremities: Positive: normal - Obstetrical FHR: category 1 Uterine Contraction Monitor Mode: External Results Result Diagrams: 05/13/19 20:37 Abnormal lab results 05/13/19 05/13/19 Range/Units 20:37 20:37 RBC 3.04 L (3.65-5.03) M/mm3 Hgb 7.4 L (10.1-14.3) gm/dl Hct 22.9 L (30.3-42.9) % MCV 75 L (79-97) fl MCH 24 L (28-32) pg RDW 17.8 H (13.2-15.2) % U Epithel Cells (Auto) 18.0 H (0-13.0) /HPF All other labs normal. Assessment and Plan 23 yo at 30 wks EGA s/p fall on abdomen and back yesterday Absent movement NST, BPP, placenta check MFM consult
--- NOTE | 2019-05-14 09:06 | Progress Note ---
Assessment and Plan 23 yo at 30 wks EGA s/p fall on abdomen and back 2 days ago Absent movement Potential small marginal abruption Continue to monitor Awaiting MFM consult Subjective - Subjective Date of service: 05/14/19 Principal diagnosis: Fall on abdomen Interval history: The patient is a 23 yo at 30 weeks EGA who sustained a fall on her abdomen and back 2 days ago. FHT category 1, still reports absent movement. O ccasional contractions overnight. BPP 8/8, placenta ultrasound showed a possible small marginal hemorrhage. Patient reports: other (absent movement), no loss of fluid, no vaginal bleeding, no contractions Objective - Vital Signs Vital Signs: Vital Signs - 12hr 05/13/19 05/13/19 05/13/19 21:10 22:11 22:41 Temperature Pulse Rate 83 81 83 Respiratory Rate Blood Pressure 108/58 106/57 106/58 05/14/19 05/14/19 05/14/19 00:00 01:08 02:22 Temperature Pulse Rate 90 81 77 Respiratory Rate Blood Pressure 115/57 112/55 127/61 05/14/19 05/14/19 05/14/19 03:55 04:33 04:42 Temperature 97.7 F Pulse Rate 77 85 Respiratory 18 Rate Blood Pressure 101/54 105/56 05/14/19 05/14/19 05/14/19 05:50 06:22 07:23 Temperature Pulse Rate 81 77 86 Respiratory Rate Blood Pressure 102/59 102/69 100/56 05/14/19 05/14/19 07:31 08:22 Temperature 97.9 F Pulse Rate 80 Respiratory 16 Rate Blood Pressure 103/59 - Exam Abdomen: Present: normal appearance, soft Uterus: Present: normal FHR: category 1 Uterine Contraction Monitor Mode: External - Labs Labs: Abnormal Labs 05/13/19 05/13/19 20:37 20:37 RBC 3.04 L Hgb 7.4 L Hct 22.9 L MCV 75 L MCH 24 L RDW 17.8 H U Epithel Cells (Auto) 18.0 H Laboratory Results - last 24 hr 05/13/19 05/13/19 05/13/19 17:00 20:37 20:37 WBC 5.1 RBC 3.04 L Hgb 7.4 L Hct 22.9 L MCV 75 L MCH 24 L MCHC 32 RDW 17.8 H Plt Count 184 PT 14.1 INR 1.12 APTT 30.1 Urine Color Yellow Urine Turbidity Slightly-cloudy Urine pH 6.0 Ur Specific [place] 1.025 Urine Protein <15 mg/dl Urine Glucose (UA) Neg Urine Ketones Neg Urine Blood Neg Urine Nitrite Neg Urine Bilirubin Neg Urine Urobilinogen 4.0 Ur Leukocyte Esterase Neg Urine WBC (Auto) 2.0 Urine RBC (Auto) 2.0 U Epithel Cells (Auto) 18.0 H Urine Mucus 3+
--- NOTE | 2019-05-14 11:08 | Consultation ---
History of Present Illness Reason for consult: other (The patient is a 23 yo at 30.4 weeks EGA per KAYLIE 07/19/19. Patient followed by [facility] for LPNC and Hx of PTD at 36+ weeks She presented from the [place] [facility] office reporting absent movement and severe abdominal pain after falling downstairs yesterday. Patient reports She fell onher back and the side of her abdomen Patient reports she was initially evaluated at [facility] then discharged home , where she was directed to her primary OB provider. She denies contractions, leaking fluid, or vaginal bleeding. 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 ) - Obstetrical History : 7 Medications and Allergies Allergies Allergy/AdvReac Type Severity Reaction Status Date / Time No Known Allergies Allergy Unverified 11/21/18 20:27 Home Medications Medication Instructions Recorded Confirmed Last Taken Type Vit No.130/Iron/Folic 1 each PO DAILY #90 tablet 11/22/18 Unknown Rx [ Tablet] metroNIDAZOLE [Flagyl] 500 mg PO BID 7 Days #14 tab 11/22/18 Unknown Rx EPINEPHrine [Epipen 2-Tony] 0.3 mg IJ PRN PRN #1 auto.injct 11/30/18 Unknown Rx Famotidine [Pepcid] 20 mg PO BID PRN #30 tablet 11/30/18 Unknown Rx Triamcinolone Aceton 0.1% (Nf) 1 applic TP BID 14 Days #1 tube 11/30/18 Unknown Rx [Kenalog (NF)] diphenhydrAMINE [Benadryl CAP] 25 mg PO Q6HR PRN #30 capsule 11/30/18 Unknown Rx predniSONE [Deltasone] 40 mg PO QDAY 5 Days #10 tab 11/30/18 Unknown Rx Clindamycin 2% [Clindamycin 2% VAG 1 applicatio VG QHS 7 Days cream 02/06/19 Unknown Rx CREAM] Ferrous Sulfate [Feosol 325 MG tab] 325 mg PO BID 30 Days #60 tablet 02/13/19 Unknown Rx Active Meds: Active Medications Acetaminophen (Tylenol) 1,000 mg PO Q6H PRN PRN Reason: Pain , Severe (7-10) Last Admin: 05/13/19 23:15 Dose: 1,000 mg Documented by: Lactated Ringer's (Lactated Ringers) 1,000 mls @ 125 mls/hr IV DIRECT TRISTA Review of Systems Constitutional: no fever, no chills Eyes: deferred Ears, nose, mouth and throat: no headache, no vertigo Cardiovascular: no rapid/irregular heart beat, no edema, no shortness of breath, no high blood pressure Respiratory: no shortness of breath Breasts: deferred Gastrointestinal: no abdominal pain Genitourinary: no vaginal bleeding, no vaginal discharge, no pelvic pain, no contractions Rectal Exam: deferred Musculoskeletal: other (back pain ) Neurological: no seizures, no headaches, no confusion, no other (change in vision ) Hematologic/Lymphatic: no easy bleeding Allergic/Immunologic: no wheezing - Vital Signs Vital signs: Vital Signs Pulse BP 78 103/57 05/13/19 16:36 05/13/19 16:36 Temp Pulse Resp BP Pulse Ox 97.9 F 78 16 113/71 100 05/14/19 07:31 05/14/19 09:23 05/14/19 07:31 05/14/19 09:23 05/13/19 19:20 - Physical Exam Breasts: Positive: deferred Cardiovascular: Regular rate Abdomen: Negative: tenderness, guarding Uterus: Positive: other (gravid ). Negative: tender Extremities: Positive: normal. Negative: tenderness, edema Deep Tendon Reflex Grade: Normal +2 - Obstetrical FHR: category 1 (for 30 weeks ) Uterine Contraction Monitor Mode: External Uterine Contraction Pattern: Absent Results Result Diagrams: 05/13/19 20:37 Abnormal lab results 05/13/19 05/13/19 Range/Units 20:37 20:37 RBC 3.04 L (3.65-5.03) M/mm3 Hgb 7.4 L (10.1-14.3) gm/dl Hct 22.9 L (30.3-42.9) % MCV 75 L (79-97) fl MCH 24 L (28-32) pg RDW 17.8 H (13.2-15.2) % U Epithel Cells (Auto) 18.0 H (0-13.0) /HPF All other labs normal. Ultrasound: report reviewed (see [facility] chart for full reports; 05/14/19 Preliminary report + FHT 128 NO abruption PCI seen on edge of placenta 05/13/19 [facility] US : VTX : FHT of 143; CJ of 17 cm and BPP of 04/24 . A POSSIBLE small marginal hemorrhage is present ) Assessment and Plan A) - IUP @ 30 .4 weeks - Reported S/P fall on her back and side of abd - initial evaluation at [facility] - denies sxs of PTL - denies VB - 05/14/19 [facility] NO placental abruption - No contractions traced - Reports movement - while at audible gross movement ( patient reports not feeling all FM ) - Reassuring BPP of 04/24 ] - CAT 1 tracing for 30+ weeks IUP - [facility] 05/14/19 Concern for PCI appreciated edge of placenta - LPNC - History of PTD at 36+ weeks - no cervical length documented on [facility] US - Anemia Hgb of 7.4 mg/dl ( reported baseline Hgb 8.2 mg on 03/11) P) -Remain inpatient with continuous monitoring : observation for 24 hrs -Obtain cervical length assessment -Obtain PNR and [facility] records -With concern for PTL : initiate PTL protocol -Address anemia -Repeat BPP 05/15/19 -Consider discharge home tomorrow ( 05/15/19) with NO concern for PTL, change in SVE , / maternal compromise ; dfm ; and sxs of placental abruption For further questions or concerns Primary OB is to call orthopedic shoes salesperson [facility] provider - Dr Eusebia Pichardo
[2019-05-14] MEDS: LACTATED RINGERS 1,000 ML IV SCH (13:09)
[2019-05-14] MEDS ORDERED: COLACE PO PRN (16:12)
[2019-05-14] MEDS ORDERED: TYLENOL PO PRN (16:12)
[2019-05-14] MEDS ORDERED: CELESTONE SOLUSPAN IM SCH (17:00)
[2019-05-14] MEDS ORDERED: PRENATAL VITAMIN PO SCH (17:00)
[2019-05-14] MEDS: TYLENOL #3 PO PRN (20:26)
[2019-05-15] MEDS: LACTATED RINGERS 1,000 ML IV SCH (01:15)
[2019-05-15] MEDS: TYLENOL #3 PO PRN (03:10)
--- NOTE | 2019-05-15 08:52 | Progress Note ---
Assessment and Plan 23 yo at 30 wks EGA s/p fall on abdomen and back 3 days ago Possible small marginal abruption Continue to monitor Appreciate MFM consult Pepcid. If no relief of chest pain, EKG and CXR Betamethasone DORI BPP today Anticipate d/c to home after second dose of BMZ Subjective - Subjective Date of service: 05/15/19 Principal diagnosis: Fall on abdomen Interval history: The patient is a 23 yo at 30 weeks EGA who sustained a fall on her abdomen and back 3 days ago. FHT category 1, still reports absent movement. Occasional contractions overnight. BPP 04/24, placenta ultrasound showed a possible small marginal hemorrhage. She is now reporting right-sided chest pain, burning sensation, no difficulty breathing. VSS She has not yet received betamethasone. Patient reports: other (absent movement), no loss of fluid, no vaginal bleeding, no contractions Objective - Vital Signs Vital Signs: Vital Signs - 12hr 05/14/19 05/15/19 05/15/19 23:30 00:56 00:57 Temperature 97.5 F L Pulse Rate 89 76 76 Respiratory 16 Rate Blood Pressure 108/59 111/57 Blood Pressure 111/57 [Right] 05/15/19 05/15/19 03:10 04:10 Temperature Pulse Rate Respiratory 18 18 Rate Blood Pressure Blood Pressure [Right] - Exam Cardiovascular: Regular rate, Normal S1, Normal S2, No murmurs Lungs: Clear to auscultation, Normal air movement FHR: category 1 Uterine Contraction Monitor Mode: External - Labs Labs: Abnormal Labs 05/13/19 05/13/19 20:37 20:37 RBC 3.04 L Hgb 7.4 L Hct 22.9 L MCV 75 L MCH 24 L RDW 17.8 H U Epithel Cells (Auto) 18.0 H Laboratory Results - last 24 hr 05/14/19 20:34 Blood Type B POSITIVE Antibody Screen Negative
[2019-05-15] MEDS: CELESTONE SOLUSPAN IM SCH ×2 (09:18→12:55)
[2019-05-15] MEDS: PEPCID PO SCH ×2 (10:27→12:54)
[2019-05-15] MEDS ORDERED: STADOL IV PRN (13:02)
[2019-05-15] MEDS: TYLENOL PO PRN (13:04)
--- NOTE | 2019-05-15 15:03 | Ultrasound Report ---
Limited OB Ultrasound Biophysical profile HISTORY: BPP. , Pelvic pain, concern for placental abruption after a fall TECHNIQUE: Grayscale and color Doppler imaging performed. COMPARISON: Limited OB ultrasound from yesterday FINDINGS: Limited OB ultrasound: There is a single intrauterine gestation which is transverse in presentation. There are 2 anechoic subplacental structures one measuring 1.7 x 0.8 cm and another measuring 1.9 x 0 .7 cm. These findings suggest small bowel areas of abruption. The CJ is 18. Placenta is positioned a nteriorly. heart rate is 1 35 bpm. Biophysical profile: Fetus received a score of 2 out of 2 for breathing movement, movemen t, posture/tone, and CJ. Total score was 8 out of 8. IMPRESSION: 1. Single viable intrauterine gestation. 2. 2 small subplacental anechoic areas worrisome for areas of placental abruption. 3. Normal biophysical profile. CRITICAL RESULT: Time of Discovery (NUCLEAR PROCESS ENGINEER/CDT): 1:54 pm Time of Communication (NUCLEAR PROCESS ENGINEER/CDT): 1:56 pm Licensed Practitioner Receiving Report: Dr. Salmon Read Back Performed: Not applicable. Signer Name: Jordi Tirado MD Signed: 05/15/2019 2:58 PM Workstation Name: [id number]
--- NOTE | 2019-05-15 15:03 | Ultrasound Report ---
Limited OB Ultrasound Biophysical profile HISTORY: BPP. , Pelvic pain, concern for placental abruption after a fall TECHNIQUE: Grayscale and color Doppler imaging performed. COMPARISON: Limited OB ultrasound from yesterday FINDINGS: Limited OB ultrasound: There is a single intrauterine gestation which is transverse in presentation. There are 2 anechoic subplacental structures one measuring 1.7 x 0.8 cm and another measuring 1.9 x 0 .7 cm. These findings suggest small bowel areas of abruption. The CJ is 18. Placenta is positioned a nteriorly. heart rate is 1 35 bpm. Biophysical profile: Fetus received a score of 2 out of 2 for breathing movement, movemen t, posture/tone, and CJ. Total score was 8 out of 8. IMPRESSION: 1. Single viable intrauterine gestation. 2. 2 small subplacental anechoic areas worrisome for areas of placental abruption. 3. Normal biophysical profile. CRITICAL RESULT: Time of Discovery (LONG LINE TEAMSTER/CDT): 1:54 pm Time of Communication (LONG LINE TEAMSTER/CDT): 1:56 pm Licensed Practitioner Receiving Report: Dr. Salmon Read Back Performed: Not applicable. Signer Name: Jordi Tirado MD Signed: 05/15/2019 2:58 PM Workstation Name: [id number]
--- NOTE | 2019-05-15 17:51 | Event Note ---
Date: 05/15/19 Patient was counseled today concerning US - US shows BPP 8/8. I was called by radiology and reported small placenta abruption x2. I spoke with Dr. Funes and h recommended patient may be discharged if US BPP 8/8 normal monitoring ( NST) and no concerns for PTL. Patient still experiencing some back pain from the fall. No report of regular contractions. I checked the patient and noted to be closed thick and high. I spoke wtih her [employer] supervisor concerning her work and she will be at least off for 1 week until furhter evaluation. I spoke with patient and mom on the phone and she will return with betamethasone shot tomorrow.ALl questions were answered to patient satisfaction. Per recommendations we will send patient home today stable and f/u this Sunday.
--- NOTE | 2019-05-15 17:57 | Discharge Summary ---
Providers - Providers Date of Admission: 05/15/19 11:21 Date of discharge: 05/15/19 Attending physician: YAS STORY MD 05/13/19 20:21 Consult to Physician [CONS] Routine Comment: Consulting Provider: REBECA THURMAN Physician Instructions: Reason For Exam: fall, contrations Primary care physician: [facility] Hospitalization Reason for admission: other (s/p fall) Discharge diagnosis: other (Placenta abruption ( small) ) Hospital course: Patient admitted and close monitoring of fetus with continous monitoring. She had labs, consults and US. She was evaluated by MFM. She received betamethasone. She was found to not have PTL. US shows small placenta abruption. Consult per MFM recommneded observation and d/c if patient was not ptl, bleeding, BPP normal in which all was noted. She will go home with follow up on Sunday and next week. Condition at discharge: Good Disposition: DC-01 TO HOME OR SELFCARE Plan - Discharge Medications Prescriptions: Acetaminophen/Codeine [Tylenol /Codeine # 3 tab] 1 tab PO Q6H PRN #5 tab PRN Reason: Pain , Severe (7-10) - Provider Discharge Summary Activity: routine, no sex for 6 weeks, no strenuous exercise Diet: routine Instructions: routine Additional instructions: [] Smoking cessation referral if applicable(refer to patient education folder for contact #) [] Refer to [facility] Booklet Call your doctor immediately for: * Fever > 100.5 * Heavy vaginal bleeding ( >1 pad per hour) * Severe persistent headache * Shortness of breath * Reddened, hot, painful area to leg or breast * Drainage or odor from incision. * Keep incision clean and dry at all times and follow doctor's instructions regarding bathing/showering - Follow up plan Follow up: PRIMARY MD YULIA [Primary Care Provider] - 05/20/19
[2019-05-16 00:21] VITALS: BP 107/69
== END 2019-05-15 20:20 | disposition home or self-care (01) ==
LOC: TRG 16:23 → UNDOADMOB 19:46 → LD 19:46 → UNDOADMOB 05-15 11:21 → INTOOBSV 05-15 11:21 → LD 05-15 11:21 → OBSVTOIN 05-15 11:21 → UNDODISOB 05-15 20:20
PROVIDERS: ADMIT Obstetrics & Gynecology; ATTEND Obstetrics & Gynecology
DX: O36.8130 Decreased fetal movements, third trimester, not applicable or unspecified (principal); O26.893 Other specified pregnancy related conditions, third trimester; R10.9 Unspecified abdominal pain; Z3A.30 30 weeks gestation of pregnancy; Z79.899 Other long term (current) drug therapy
CPT/HCPCS: 36415; 76815; 76819; 81001; 85027; 85610; 85730; 86850; 86900; 86901; 96372; G0378; J0702; J7120

== ENCOUNTER 2019-05-16 16:46 | Outpatient (CLI) | payer MEDICAID ==
[2019-05-16] MEDS ORDERED: LACTATED RINGERS 1,000 ML IV SCH (17:00)
[2019-05-16 17:08] VITALS: BP 109/57
[2019-05-16] MEDS ORDERED: CELESTONE SOLUSPAN IM ONE (17:58)
[2019-05-16 18:01] LABS: Bilirubin,Urine NEG (Negative); Color,Urine Yellow (Yellow)
[2019-05-16 18:02] LABS: Bacteria,Urine 2+ /HPF (Negative); Blood,Urine NEG (Negative); Mucus,Urine FEW /HPF; Protein,Urine <15 mg/dL mg/dL (Negative); Urobilinogen,Urine < 2.0 mg/dL (<2.0)
== END 2019-05-16 17:34 | disposition left against medical advice (07) ==
LOC: TRG 16:46
PROVIDERS: ATTEND Obstetrics & Gynecology
DX: O36.8130 Decreased fetal movements, third trimester, not applicable or unspecified (principal); Z3A.30 30 weeks gestation of pregnancy
CPT/HCPCS: 59025; 81001; 96372; J0702

== ENCOUNTER 2019-06-03 00:05 | Outpatient (CLI) | payer MEDICAID ==
[2019-06-03] MEDS ORDERED: LACTATED RINGERS 1,000 ML IV ONE (00:43)
[2019-06-03] MEDS ORDERED: LACTATED RINGERS 1,000 ML ONE (00:46)
[2019-06-03 01:24] LABS: Bacteria,Urine 1+ /HPF (Negative); Bilirubin,Urine NEG (Negative); Blood,Urine NEG (Negative); Color,Urine Yellow (Yellow); Mucus,Urine 3+ /HPF
[2019-06-03 01:34] VITALS: BP 110/55
--- NOTE | 2019-06-03 03:46 | Vascular Lab Report ---
DUPLEX DOPPLER LOWER EXTREMITY VEINS, BILATERAL INDICATION: bilateral calf pain. Patient is 33 weeks . TECHNIQUE: Duplex doppler imaging was performed through the veins of both lower extremities using venous dorita cara and other maneuvers. COMPARISON: None available. FINDINGS: Right Common femoral vein: Negative. Right Superficial femoral vein: Negative. Right Popliteal vein: Negative. Right Calf veins: Negative. Left Common femoral vein: Negative. Left Superficial femoral vein: Negative. Left Popliteal vein: Negative. Left Calf veins: Negative. Additional findings: None. IMPRESSION: 1. No sonographic evidence for DVT in either lower extremity. Signer Name: Darren Barajas MD Signed: 06/03/2019 3:41 AM Workstation Name: [id number]
--- NOTE | 2019-06-03 03:48 | Ultrasound Report ---
Limited OB ultrasound INDICATION: contractions FINDINGS: A single intrauterine in cephalic presentation is noted. Amniotic fluid index is normal. Pl acenta is located anteriorly. heart rate is 137 bpm. BIOPHYSICAL PROFILE: INDICATION: contractions FINDINGS: Biophysical profile score is 8 out of 8. There is a score of 2 for breathing movement, movement, posture and tone and qualit ative amniotic fluid volume IMPRESSION: Single intrauterine is noted. The placenta is located anteriorly. Amniotic fluid index is n ormal. The biophysical profile score is 8 out of 8. Signer Name: Darren Barajas MD Signed: 06/03/2019 3:43 AM Workstation Name: [id number]
== END 2019-06-03 04:03 | disposition home or self-care (01) ==
LOC: TRG 00:05
PROVIDERS: ATTEND Obstetrics & Gynecology
DX: O62.9 Abnormality of forces of labor, unspecified (principal); O26.893 Other specified pregnancy related conditions, third trimester; M54.5 Low back pain; M79.604 Pain in right leg; M79.605 Pain in left leg; O09.213 Supervision of pregnancy with history of pre-term labor, third trimester; Z3A.33 33 weeks gestation of pregnancy
CPT/HCPCS: 59025; 76815; 76819; 81001; 93970; 96360; J7120

== ENCOUNTER 2019-06-12 23:15 | Inpatient (IN) | payer MEDICAID ==
[2019-06-12] MEDS ORDERED: LACTATED RINGERS 500 ML IV ONE (23:32)
[2019-06-13] MEDS ORDERED: ACETAMINOPHEN 325 MG TAB PO PRN (02:21)
[2019-06-13] MEDS ORDERED: DOCUSATE SODIUM 100 MG CAP PO PRN (02:21)
[2019-06-13] MEDS ORDERED: diphenhydrAMINE 25 MG CAP PO PRN (02:21)
--- NOTE | 2019-06-13 02:29 | History and Physical Report ---
History of Present Illness Date of examination: 06/13/19 Date of admission: 06/13/19 Chief complaint: Contractions History of present illness: The patient is a 23 yo at 34.6 weeks EGA who presents with contractions q2 minutes. Feels like intermittent pelvic pressure and sharp low back pain. This has been happening since 1600 yesterday. She reports positive movement and denies leaking fluid or vaginal bleeding. Her has been complicated by small placental abruption at 30 weeks EGA after falling down 8 stairs onto back and abdomen. She has received 2 doses of Betamethasone, 4 weeks ago. Past History Past Medical History: no pertinent history Past Surgical History: no surgical history - Obstetrical History : 7 Para: 5 Hx # Term Pregnancies: 4 Number of Pregnancies: 1 Induced : 1 Number of Living Children: 5 Medications and Allergies Allergies Allergy/AdvReac Type Severity Reaction Status Date / Time No Known Allergies Allergy Verified 05/16/19 16:55 Home Medications Medication Instructions Recorded Confirmed Last Taken Type Vit No.130/Iron/Folic 1 each PO DAILY #90 tablet 11/22/18 05/15/19 05/11/19 09:00 Rx [ Tablet] 1 Acetaminophen/Codeine [Tylenol 1 tab PO Q6H PRN #5 tab 05/15/19 Unknown Rx /Codeine # 3 tab] Review of Systems All systems: negative Cardiovascular: no chest pain Respiratory: no shortness of breath Genitourinary: pelvic pain, contractions, no vaginal bleeding, no vaginal discharge, no leakage of fluid, no genital sores - Vital Signs Vital signs: Vital Signs Pulse BP Pulse Ox 103 H 116/68 100 06/12/19 23:30 06/12/19 23:30 06/12/19 23:30 Temp Pulse Resp BP Pulse Ox 97.6 F 88 18 116/68 100 06/12/19 23:47 06/13/19 01:09 06/12/19 23:47 06/12/19 23:47 06/13/19 01:09 - Physical Exam Lungs: Positive: Normal air movement Abdomen: Positive: soft (between contractions) Genitourinary (Female): Positive: normal external genitalia, normal perenium Vagina: Positive: normal moisture Uterus: Positive: enlarged (gravid) Anus/Rectum: Positive: normal perianal skin Extremities: Positive: normal - Obstetrical FHR: category 1 Uterine Contraction Monitor Mode: External Cervical Dilatation: 1 Cervical Effacement Percentage: 20 station: -3 Uterine Contraction Frequency (min): 2 Uterine Contraction Duration: 60 Uterine Contraction Pattern: Regular Uterine Tone Measurement Phase: Contraction Uterine Contraction Intensity: Strong/Firm Results All other labs normal. Assessment and Plan A: 23 yo at 34.6 weeks EGA with contractions No cervical change History of small placental abruption 4 weeks ago S/p Betamethasone x2, 4 weeks ago P: Admit for observation MFM consult Ultrasound for placenta evaluation Consider additional dose of Betamethasone
--- NOTE | 2019-06-13 03:12 | Ultrasound Report ---
ULTRASOUND BIOPHYSICAL PROFILE INDICATION / CLINICAL INFORMATION: Placenta scan for abruption evaluation. COMPARISON: 06/03/2019. FINDINGS: The uterus is anterior, grade 1, without evidence of abruption. PRESENTATION: Cephalic. HEART RATE (beats per minute): 128 IMPRESSION: No sonographic evidence of placental abruption. Signer Name: Calin Thomas MD Signed: 06/13/2019 3:08 AM Workstation Name: [id number]
[2019-06-13] MEDS ORDERED: TERBUTALINE 1 MG/1 ML INJ SUB-Q ONE ×2 (03:17→05:32)
[2019-06-13] MEDS ORDERED: BETAMET ACET/BETAMET NA PH 6 MG/ML INJ 5 ML MDV IM ONE (03:20)
[2019-06-13] MEDS: BUTORPHANOL 2 MG/1 ML INJ IV PRN ×3 (03:23→14:31)
[2019-06-13 05:10] LABS: Basophils % (Auto) 0.4 % (0.0-1.8); Eosinophils # (Auto) 0.1 K/mm3 (0.0-0.4); Eosinophils % (Auto) 1.1 % (0.0-4.3); Hematocrit 22.9 % (30.3-42.9); Hemoglobin 7.2 gm/dl (10.1-14.3); Lymphocytes # (Auto) 1.5 K/mm3 (1.2-5.4); Lymphocytes % (Auto) 30.3 % (13.4-35.0); Mean Corpuscular HGB Conc 32 % (30-34); Mean Corpuscular Volume 74 fl (79-97); Monocytes # (Auto) 0.3 K/mm3 (0.0-0.8); Monocytes % (Auto) 5.4 % (0.0-7.3); Platelet Count 230 K/mm3 (140-440); Red Cell Distribution Width 18.5 % (13.2-15.2)
[2019-06-13 05:13] LABS: Bacteria,Urine 1+ /HPF (Negative); Bilirubin,Urine NEG (Negative); Blood,Urine NEG (Negative); Color,Urine Yellow (Yellow); Mucus,Urine 3+ /HPF
[2019-06-13 05:33] LABS: Albumin 3.1 g/dL (3.9-5); BUN/Creatinine Ratio 10; Blood Urea Nitrogen 4 mg/dL (7-17); Calcium 7.7 mg/dL (8.4-10.2); Hemolysis Index 9
[2019-06-13 05:44] LABS: Alanine Aminotransferase < 5 units/L (7-56)
[2019-06-13] MEDS ORDERED: CALCIUM GLUCONATE 1000 MG/10 ML INJ IV ONE (06:16)
[2019-06-13] MEDS ORDERED: MAGNESIUM SULFATE 4 GM/100 ML BAG IV ONE (06:16)
--- NOTE | 2019-06-13 06:25 | Progress Note ---
Assessment and Plan A: 23 yo at 34.6 weeks EGA with contractions Minimal cervical change Per ultrasound, abruption resolved S/p Betamethasone x3 and Terbutaline x2 P: Continue to monitor MFM consult Initiate Magnesium Sulfate infusion for tocolysis Subjective - Subjective Date of service: 06/13/19 Principal diagnosis: contractions Interval history: The patient is a 23 yo at 34.6 weeks EGA who presents with contractions q2 minutes. Feels like intermittent pelvic pressure and sharp low back pain. This has been happening since 1600 yesterday. She reports positive movement and denies leaking fluid or vaginal bleeding. Her has been complicated by small placental abruption (now resolved) at 30 weeks EGA after falling down 8 stairs onto back and abdomen. She has received 2 doses of Betamethasone, 4 weeks ago. She is now s/p third dose of Betamethasone today, and 2 doses of subq Terbutaline. Contractions have slowed to q4 min. Patient reports: movement normal, contractions, no new complaints, no loss of fluid, no vaginal bleeding Objective - Vital Signs Vital Signs: Vital Signs - 12hr 06/12/19 06/12/19 06/12/19 23:30 23:35 23:47 Temperature 97.6 F Pulse Rate 112 H 103 H Respiratory 18 Rate Blood Pressure 116/68 Blood Pressure 116/68 [Left] O2 Sat by Pulse 100 100 Oximetry 06/13/19 06/13/19 06/13/19 00:54 00:58 01:04 Temperature Pulse Rate 88 104 H 91 H Respiratory Rate Blood Pressure Blood Pressure [Left] O2 Sat by Pulse 99 99 99 Oximetry 06/13/19 01:09 Temperature Pulse Rate 88 Respiratory Rate Blood Pressure Blood Pressure [Left] O2 Sat by Pulse 100 Oximetry - Exam Abdomen: Present: normal appearance, soft FHR: category 1 Uterine Contraction Monitor Mode: External Cervical Dilatation: 1 Cervical Effacement Percentage: 30 station: -4 Uterine Contraction Frequency (min): 4 Uterine Contraction Duration: 60 Uterine Contraction Pattern: Regular - Labs Labs: Abnormal Labs 06/13/19 06/13/19 06/13/19 01:30 04:20 04:20 RBC 3.10 L Hgb 7.2 L Hct 22.9 L MCV 74 L MCH 23 L RDW 18.5 H Sodium 136 L Potassium 3.3 L BUN 4 L Creatinine 0.4 L Calcium 7.7 L ALT < 5 L Alkaline Phosphatase 134 H Total Protein 6.2 L Albumin 3.1 L U Epithel Cells (Auto) 27.0 H Laboratory Results - last 24 hr 06/13/19 06/13/19 06/13/19 01:30 04:20 04:20 WBC 5.1 RBC 3.10 L Hgb 7.2 L Hct 22.9 L MCV 74 L MCH 23 L MCHC 32 RDW 18.5 H Plt Count 230 Lymph % (Auto) 30.3 [place] % (Auto) 5.4 Eos % (Auto) 1.1 Baso % (Auto) 0.4 Lymph # 1.5 Gonzales # 0.3 Eos # 0.1 Baso # 0.0 Seg Neutrophils % 62.8 Seg Neutrophils # 3.2 Sodium 136 L Potassium 3.3 L Chloride 101.2 Carbon Dioxide 24 Anion Gap 14 BUN 4 L Creatinine 0.4 L Estimated GFR > 60 BUN/Creatinine Ratio 10 Glucose 97 Calcium 7.7 L Total Bilirubin 0.20 AST 15 ALT < 5 L Alkaline Phosphatase 134 H Total Protein 6.2 L Albumin 3.1 L Albumin/Globulin Ratio 1.0 Urine Color Yellow Urine Turbidity Cloudy Urine pH 6.0 Ur Specific [place] 1.028 Urine Protein 30 mg/dl Urine Glucose (UA) Neg Urine Ketones Neg Urine Blood Neg Urine Nitrite Neg Urine Bilirubin Neg Urine Urobilinogen 4.0 Ur Leukocyte Esterase Neg Urine WBC (Auto) 2.0 Urine RBC (Auto) 1.0 U Epithel Cells (Auto) 27.0 H Urine Bacteria (Auto) 1+ Urine Mucus 3+
[2019-06-13] MEDS: MAGNESIUM SULFATE 40GM/1000ML 40 GM/1,000 ML BAG IV SCH (07:05)
[2019-06-13] MEDS: LACTATED RINGERS 1,000 ML IV SCH (12:33)
[2019-06-13] MEDS: PRENATAL VIT27-FE FUMARATE-FOLIC ACID VIT TAB PO SCH (12:34)
[2019-06-13] MEDS: FERROUS SULFATE 325 MG TAB PO SCH ×2 (12:34→22:03)
--- NOTE | 2019-06-13 18:57 | Ultrasound Report ---
US OB BPP wo non-stress INDICATION / CLINICAL INFORMATION: for pt well being, pt fall and R/O abruption. COMPARISON: 06/03/2019 FINDINGS: breathing movements: 0 movement: 2 posture and tone: 2 Amniotic fluid volume: 2 Total score: 6/8 IMPRESSION: 1. Biophysical profile score of 6/8. Signer Name: Mark Torres MD Signed: 06/13/2019 6:53 PM Workstation Name: [id number]
[2019-06-13] MEDS ORDERED: ZOLPIDEM 10 MG TAB PO PRN (19:30)
--- NOTE | 2019-06-13 19:32 | Consultation ---
History of Present Illness Consult date: 06/13/19 Requesting physician: YAS STORY Reason for consult: contractions History of present illness: o As you are aware, this is a 23 year old para 5205 at EGA= 34 weeks 6 days gestation who was admitted to [facility] with contractions and suspected labor. o The patient presented with uterine contractions that have resolved during observation. o At the time of my evaluation, the patient denied vaginal bleeding, leakage of fluid, fever or chills. o Patient also denied severe abdominal pain, but she did admit to intermittent (and increasing) low pelvic discomfort with movement. o Since admission, uterine tocodynametry has been significant for mild episodes of irritability and mild contractile activity at irregular intervals. The patient is currently taking Magnesium sulfate as an IV tocolytic. l PAST OB HISTORY: o See full report in patients chart o - l Physical Examination: l See hospital chart for details l General exam: WDWN, NAD. l Abdominal exam: soft, non-tender, non-distended, bowel sounds: normal. l NST reactive, no decelerations, (+) irregular uterine activity l Cervico-vaginal exam: 1.5 cm (per previous exam). See notes in patient's chart. ULTRASOUND: BPP: 02/22 Past History Past Medical History: no pertinent history Past Surgical History: no surgical history - Obstetrical History : 7 Medications and Allergies Allergies Allergy/AdvReac Type Severity Reaction Status Date / Time No Known Allergies Allergy Verified 05/16/19 16:55 Home Medications Medication Instructions Recorded Confirmed Last Taken Type No Known Home Medications [No 06/13/19 06/13/19 Unknown History Reported Home Medications] Active Meds: Active Medications Acetaminophen (Tylenol) 650 mg PO Q4H PRN PRN Reason: Pain MILD(1-3)/Fever >100.5/OBREGON Butorphanol Tartrate (Stadol) 2 mg IV Q2H PRN PRN Reason: Labor Pain Last Admin: 06/13/19 14:31 Dose: 2 mg Documented by: Diphenhydramine HCl (Benadryl) 25 mg PO Q6H PRN PRN Reason: Itching Docusate Sodium (Colace) 100 mg PO Q12H PRN PRN Reason: Constipation Ferrous Sulfate (Feosol) 325 mg PO BID TRISTA Last Admin: 06/13/19 12:34 Dose: 325 mg Documented by: Lactated Ringer's (Lactated Ringers) 1,000 mls @ 125 mls/hr IV DIRECT TRISTA Lactated Ringer's (Lactated Ringers) 1,000 mls @ 125 mls/hr IV DIRECT TRISTA Last Admin: 06/13/19 12:33 Dose: 75 mls/hr Documented by: Magnesium Sulfate (Magnesium Sulfate 40gm/1000ml) 40 gm in 1,000 mls @ 50 mls/hr IV DIRECT TRISTA Last Admin: 06/13/19 07:05 Dose: 2 gm/hr, 50 mls/hr Documented by: Multivitamins/Iron/Calcium ( Vitamin) 1 each PO QDAY TRISTA Last Admin: 06/13/19 12:34 Dose: 1 each Documented by: Ondansetron HCl (Zofran) 4 mg IV Q6H PRN PRN Reason: Nausea And Vomiting - Vital Signs Vital signs: Vital Signs Pulse BP Pulse Ox 103 H 116/68 100 06/12/19 23:30 06/12/19 23:30 06/12/19 23:30 Temp Pulse Resp BP Pulse Ox 97.4 F L 76 18 96/54 100 06/13/19 16:21 06/13/19 19:27 06/13/19 16:21 06/13/19 18:28 06/13/19 19:27 Results Result Diagrams: 06/13/19 04:20 06/13/19 04:20 Abnormal lab results 06/13/19 06/13/19 06/13/19 Range/Units 01:30 04:20 04:20 RBC 3.10 L (3.65-5.03) M/mm3 Hgb 7.2 L (10.1-14.3) gm/dl Hct 22.9 L (30.3-42.9) % MCV 74 L (79-97) fl MCH 23 L (28-32) pg RDW 18.5 H (13.2-15.2) % Sodium 136 L (137-145) mmol/L Potassium 3.3 L (3.6-5.0) mmol/L BUN 4 L (7-17) mg/dL Creatinine 0.4 L (0.7-1.2) mg/dL Calcium 7.7 L (8.4-10.2) mg/dL Magnesium (1.7-2.3) mg/dL ALT < 5 L (7-56) units/L Alkaline Phosphatase 134 H (35-129) units/L Total Protein 6.2 L (6.3-8.2) g/dL Albumin 3.1 L (3.9-5) g/dL U Epithel Cells (Auto) 27.0 H (0-13.0) /HPF 06/13/19 Range/Units 12:29 RBC (3.65-5.03) M/mm3 Hgb (10.1-14.3) gm/dl Hct (30.3-42.9) % MCV (79-97) fl MCH (28-32) pg RDW (13.2-15.2) % Sodium (137-145) mmol/L Potassium (3.6-5.0) mmol/L BUN (7-17) mg/dL Creatinine (0.7-1.2) mg/dL Calcium (8.4-10.2) mg/dL Magnesium 4.80 H (1.7-2.3) mg/dL ALT (7-56) units/L Alkaline Phosphatase (35-129) units/L Total Protein (6.3-8.2) g/dL Albumin (3.9-5) g/dL U Epithel Cells (Auto) (0-13.0) /HPF All other labs normal. Assessment and Plan ASSESSMENT: * IUP at 34 weeks gestation admitted due cervical shortening, dilation and symptoms of labor. * Currently, an analysis of this patients symptoms, tocodynametry, recent history place her at increased risk for spontaneous in the near future. RECOMMENDATIONS: * Repeat BPP in AM * We are in agreement with close observation to rule out progressive contractions or early labor. * Neonatology aware. * Given the current gestational age you may wish to consider steroids to enhance lung maturity. * We would give magnesium sulfate for neuroprotection * Patient has previously had steroids for lung maturation. * I would, however, discontinue Procardia and prepare for if this patient shows continued contractions and/or cervical change while on Procardia. * Please obtain testing to rule out the possibility of a urinary tract infection * Given the current gestational age, estimated weight and progressive nature of contractions I would exercise caution with additional (aggressive) tocolysis given the narrow margin between risk and benefit for these medications at this gestational age. * Currently there is insufficient evidence to support aggressive intravenous tocolysis in this patient after completion of steroids. * I would abandon all attempts of tocolysis in the presence of SROM, unexplained vaginal bleeding, SVE > 5 cm or a non-reassuring heart rate pattern. * Conceivably at this patients symptoms improve she may become a candidate for discharge an outpatient oral tocolytic therapy until 36 weeks gestation. * Kindly contact [facility] as needed if her clinical status changes. Thank you for allowing us to participate in the care of this patient. We look forward to the opportunity to assist in her continued management. If you have any questions, we may be reached at [phone]. Judie Pichardo MD, FACOG
[2019-06-13] MEDS: ONDANSETRON 4 MG/2 ML INJ IV PRN (20:51)
[2019-06-14] MEDS: LACTATED RINGERS 1,000 ML IV SCH ×3 (01:38→06:30)
[2019-06-14] MEDS: MAGNESIUM SULFATE 40GM/1000ML 40 GM/1,000 ML BAG IV SCH (03:05)
[2019-06-14 10:08] VITALS: BP 110/74
[2019-06-14] MEDS: ONDANSETRON 4 MG/2 ML INJ IV PRN (10:37)
--- NOTE | 2019-06-14 11:32 | Progress Note ---
Assessment and Plan - Patient Problems (1) contractions Current Visit: Yes Status: Acute Plan to address problem: clinically stable discharge home Subjective - Subjective Date of service: 06/14/19 Principal diagnosis: contractions Interval history: Patient remains stable. Ultrasound BPP 8. Patient is having irregular contractions without cervical change. She has been ambulating to her car against medical advice. She reports her pain to the nurse is 10/10 however the patient is walking around and talking without distress. Patient reports: movement normal, contractions, no new complaints, no loss of fluid, no vaginal bleeding Objective - Vital Signs Vital Signs: Vital Signs - 12hr 06/14/19 06/14/19 06/14/19 00:01 00:02 00:07 Temperature Pulse Rate 95 H 92 H 92 H Blood Pressure 101/55 O2 Sat by Pulse 100 100 Oximetry 06/14/19 06/14/19 06/14/19 00:12 00:17 00:22 Temperature Pulse Rate 81 90 84 Blood Pressure O2 Sat by Pulse 100 100 100 Oximetry 06/14/19 06/14/19 06/14/19 00:27 00:32 00:33 Temperature Pulse Rate 78 81 81 Blood Pressure O2 Sat by Pulse 100 100 0 L Oximetry 06/14/19 06/14/19 06/14/19 00:37 00:42 00:47 Temperature Pulse Rate 83 84 92 H Blood Pressure O2 Sat by Pulse 100 100 100 Oximetry 06/14/19 06/14/19 06/14/19 00:52 00:57 01:02 Temperature Pulse Rate 85 87 79 Blood Pressure O2 Sat by Pulse 100 99 100 Oximetry 06/14/19 06/14/19 06/14/19 01:07 01:12 01:17 Temperature Pulse Rate 87 84 87 Blood Pressure 100/56 O2 Sat by Pulse 100 100 100 Oximetry 06/14/19 06/14/19 06/14/19 01:22 01:27 01:32 Temperature Pulse Rate 86 86 85 Blood Pressure O2 Sat by Pulse 100 100 100 Oximetry 06/14/19 06/14/19 06/14/19 01:37 01:41 01:42 Temperature Pulse Rate 88 85 96 H Blood Pressure O2 Sat by Pulse 100 89 100 Oximetry 06/14/19 06/14/19 06/14/19 01:47 01:52 01:57 Temperature Pulse Rate 70 76 76 Blood Pressure O2 Sat by Pulse 100 100 100 Oximetry 06/14/19 06/14/19 06/14/19 02:02 02:07 02:12 Temperature Pulse Rate 74 72 76 Blood Pressure 106/58 O2 Sat by Pulse 100 100 100 Oximetry 06/14/19 06/14/19 06/14/19 02:17 02:22 02:27 Temperature Pulse Rate 75 79 79 Blood Pressure O2 Sat by Pulse 99 99 99 Oximetry 06/14/19 06/14/19 06/14/19 02:32 02:37 02:42 Temperature Pulse Rate 82 83 85 Blood Pressure O2 Sat by Pulse 99 100 100 Oximetry 06/14/19 06/14/19 06/14/19 02:47 02:52 02:57 Temperature Pulse Rate 93 H 85 78 Blood Pressure O2 Sat by Pulse 100 100 100 Oximetry 06/14/19 06/14/19 06/14/19 03:02 03:07 03:08 Temperature Pulse Rate 78 82 80 Blood Pressure 100/61 O2 Sat by Pulse 100 100 Oximetry 06/14/19 06/14/19 06/14/19 03:12 03:17 03:22 Temperature Pulse Rate 79 83 82 Blood Pressure O2 Sat by Pulse 100 100 100 Oximetry 06/14/19 06/14/19 06/14/19 03:27 03:32 03:37 Temperature Pulse Rate 83 82 83 Blood Pressure O2 Sat by Pulse 100 100 100 Oximetry 06/14/19 06/14/19 06/14/19 03:42 03:47 03:52 Temperature Pulse Rate 88 81 87 Blood Pressure O2 Sat by Pulse 100 100 100 Oximetry 06/14/19 06/14/19 06/14/19 03:57 04:02 04:07 Temperature Pulse Rate 98 H 86 93 H Blood Pressure O2 Sat by Pulse 100 100 100 Oximetry 06/14/19 06/14/19 06/14/19 04:08 04:12 04:17 Temperature Pulse Rate 90 91 H 87 Blood Pressure 93/58 O2 Sat by Pulse 100 100 Oximetry 06/14/19 06/14/19 06/14/19 04:22 04:27 04:32 Temperature Pulse Rate 88 87 84 Blood Pressure O2 Sat by Pulse 100 100 100 Oximetry 06/14/19 06/14/19 06/14/19 04:37 04:42 04:47 Temperature Pulse Rate 85 86 82 Blood Pressure O2 Sat by Pulse 100 100 100 Oximetry 06/14/19 06/14/19 06/14/19 04:52 04:57 05:02 Temperature Pulse Rate 86 84 86 Blood Pressure O2 Sat by Pulse 100 100 100 Oximetry 06/14/19 06/14/19 06/14/19 05:07 05:12 05:17 Temperature Pulse Rate 83 86 85 Blood Pressure 93/56 O2 Sat by Pulse 100 100 100 Oximetry 06/14/19 06/14/19 06/14/19 05:22 05:27 05:32 Temperature Pulse Rate 91 H 90 89 Blood Pressure O2 Sat by Pulse 100 100 100 Oximetry 06/14/19 06/14/19 06/14/19 05:37 05:42 05:47 Temperature Pulse Rate 86 82 86 Blood Pressure O2 Sat by Pulse 100 100 100 Oximetry 06/14/19 06/14/19 06/14/19 05:52 05:57 06:02 Temperature Pulse Rate 86 87 86 Blood Pressure O2 Sat by Pulse 100 100 100 Oximetry 06/14/19 06/14/19 06/14/19 06:07 06:12 06:17 Temperature Pulse Rate 84 88 87 Blood Pressure 94/62 O2 Sat by Pulse 100 100 100 Oximetry 06/14/19 06/14/19 06/14/19 06:22 06:27 06:32 Temperature Pulse Rate 92 H 85 88 Blood Pressure O2 Sat by Pulse 100 100 100 Oximetry 06/14/19 06/14/19 06/14/19 06:37 06:42 06:47 Temperature Pulse Rate 86 86 89 Blood Pressure O2 Sat by Pulse 100 100 100 Oximetry 06/14/19 06/14/19 06/14/19 06:52 06:57 07:02 Temperature Pulse Rate 87 78 82 Blood Pressure O2 Sat by Pulse 100 100 100 Oximetry 06/14/19 06/14/19 06/14/19 07:07 07:12 07:17 Temperature Pulse Rate 91 H 87 88 Blood Pressure 118/65 O2 Sat by Pulse 100 100 100 Oximetry 06/14/19 06/14/19 06/14/19 07:22 07:27 07:32 Temperature Pulse Rate 85 92 H 86 Blood Pressure O2 Sat by Pulse 100 100 100 Oximetry 06/14/19 06/14/19 06/14/19 07:37 07:42 07:47 Temperature Pulse Rate 99 H 90 88 Blood Pressure O2 Sat by Pulse 100 100 100 Oximetry 06/14/19 06/14/19 06/14/19 07:52 07:57 08:02 Temperature Pulse Rate 68 80 82 Blood Pressure O2 Sat by Pulse 100 99 100 Oximetry 06/14/19 06/14/19 06/14/19 08:07 08:12 08:17 Temperature Pulse Rate 85 80 82 Blood Pressure O2 Sat by Pulse 100 100 100 Oximetry 06/14/19 06/14/19 06/14/19 08:22 08:27 08:32 Temperature Pulse Rate 84 82 77 Blood Pressure O2 Sat by Pulse 100 99 100 Oximetry 06/14/19 06/14/19 06/14/19 08:37 08:42 08:47 Temperature Pulse Rate 86 85 85 Blood Pressure O2 Sat by Pulse 99 99 99 Oximetry 06/14/19 06/14/19 06/14/19 08:52 08:57 09:02 Temperature Pulse Rate 82 82 83 Blood Pressure O2 Sat by Pulse 98 98 99 Oximetry 06/14/19 06/14/19 06/14/19 09:07 09:12 09:17 Temperature Pulse Rate 82 86 93 H Blood Pressure 116/65 O2 Sat by Pulse 100 100 99 Oximetry 06/14/19 06/14/19 06/14/19 09:22 09:27 09:32 Temperature Pulse Rate 85 90 93 H Blood Pressure O2 Sat by Pulse 99 99 99 Oximetry 06/14/19 06/14/19 06/14/19 09:37 09:42 09:47 Temperature Pulse Rate 87 86 73 Blood Pressure O2 Sat by Pulse 99 99 100 Oximetry 06/14/19 06/14/19 06/14/19 09:52 09:57 10:02 Temperature Pulse Rate 83 78 90 Blood Pressure O2 Sat by Pulse 100 100 100 Oximetry 06/14/19 06/14/19 06/14/19 10:06 10:07 10:12 Temperature 97.8 F Pulse Rate 92 H 92 H 92 H Blood Pressure 110/74 O2 Sat by Pulse 100 100 Oximetry 06/14/19 06/14/19 06/14/19 10:17 10:22 10:25 Temperature Pulse Rate 92 H 94 H 105 H Blood Pressure O2 Sat by Pulse 100 100 80 L Oximetry 06/14/19 10:27 Temperature Pulse Rate 93 H Blood Pressure O2 Sat by Pulse 94 Oximetry - Labs Labs: Abnormal Labs 06/13/19 06/13/19 06/13/19 01:30 04:20 04:20 RBC 3.10 L Hgb 7.2 L Hct 22.9 L MCV 74 L MCH 23 L RDW 18.5 H Sodium 136 L Potassium 3.3 L BUN 4 L Creatinine 0.4 L Calcium 7.7 L Magnesium ALT < 5 L Alkaline Phosphatase 134 H Total Protein 6.2 L Albumin 3.1 L U Epithel Cells (Auto) 27.0 H 06/13/19 06/13/19 06/14/19 12:29 20:52 01:39 RBC Hgb Hct MCV MCH RDW Sodium Potassium BUN Creatinine Calcium Magnesium 4.80 H 5.50 H 5.50 H ALT Alkaline Phosphatase Total Protein Albumin U Epithel Cells (Auto) Laboratory Results - last 24 hr 06/13/19 06/13/19 06/14/19 12:29 20:52 01:39 Magnesium 4.80 H 5.50 H 5.50 H
--- NOTE | 2019-06-14 11:35 | Discharge Summary ---
Providers - Providers Date of Admission: 06/13/19 02:21 Date of discharge: 06/14/19 Attending physician: YAS STORY MD 06/13/19 02:21 Consult to Physician [CONS] Routine Comment: Consulting Provider: LM DEL RIO Physician Instructions: Reason For Exam: Placental abruption, contractions Primary care physician: YAS STORY MD Hospitalization Reason for admission: other ( contractions) Discharge diagnosis: other ( contractions) Hospital course: Patient admitted for contractions. Received magnesium tocolysis. The patient did not have any further cervical change. The patient was discharged home. Condition at discharge: Good Disposition: DC-01 TO HOME OR SELFCARE - Discharge Diagnoses (1) contractions Status: Acute Plan - Provider Discharge Summary Activity: no heavy lifting 4 weeks, no strenuous exercise Diet: routine Instructions: routine Additional instructions: [] Smoking cessation referral if applicable(refer to patient education folder for contact #) [] Refer to [facility] Call your doctor immediately for: * Fever > 100.5 * Heavy vaginal bleeding ( >1 pad per hour) * Severe persistent headache * Shortness of breath * Reddened, hot, painful area to leg or breast * schedule OB visit in one week - Follow up plan
[2019-06-14] MEDS: FERROUS SULFATE 325 MG TAB PO SCH (11:53)
[2019-06-14] MEDS: PRENATAL VIT27-FE FUMARATE-FOLIC ACID VIT TAB PO SCH (11:54)
--- NOTE | 2019-06-14 12:26 | Ultrasound Report ---
OB ultrasound with biophysical profile. INDICATION: Contractions. Back pain. COMPARISON: OB ultrasound from 06/13/2019. FINDINGS: The biophysical profile is 8/8. The heart rate is 130 bpm. No significant abnormality is otherwise seen. IMPRESSION: Single live intrauterine with a normal biophysical profile. Signer Name: Anmol Hsu MD Signed: 06/14/2019 12:22 PM Workstation Name: [id number]
== END 2019-06-14 13:05 | disposition home or self-care (01) | DRG 778 ==
LOC: TRG 23:15 → INTOOBSV 06-13 02:21 → TRG 06-13 02:21 → OBSVTOIN 06-13 02:21 → LD 06-13 02:21
PROVIDERS: ADMIT Obstetrics & Gynecology; ATTEND Obstetrics & Gynecology
DX: O60.03 Preterm labor without delivery, third trimester (principal); O99.013 Anemia complicating pregnancy, third trimester; Z3A.34 34 weeks gestation of pregnancy; O69.3XX0 Labor and delivery complicated by short cord, not applicable or unspecified
CPT/HCPCS: 36415; 76815; 76819; 80053; 81001; 83735; 85025; G0378; J0595; J0702; J2405; J3105; J3475; J7120

== ENCOUNTER 2019-06-18 14:31 | Outpatient (CLI) | payer MEDICAID ==
[2019-06-18] MEDS ORDERED: LACTATED RINGERS 500 ML IV ONE (15:00)
[2019-06-18 15:07] VITALS: BP 109/59
[2019-06-18 15:22] LABS: Bacteria,Urine 1+ /HPF (Negative); Bilirubin,Urine NEG (Negative); Blood,Urine NEG (Negative); Color,Urine Yellow (Yellow); Mucus,Urine FEW /HPF; Protein,Urine <15 mg/dL mg/dL (Negative); Urobilinogen,Urine < 2.0 mg/dL (<2.0)
== END 2019-06-18 19:00 | disposition home or self-care (01) ==
LOC: TRG 14:31
PROVIDERS: ATTEND Obstetrics & Gynecology
DX: O62.9 Abnormality of forces of labor, unspecified (principal); O09.213 Supervision of pregnancy with history of pre-term labor, third trimester; Z3A.35 35 weeks gestation of pregnancy
CPT/HCPCS: 36415; 59025; 81001; 82731; J7120; 96360

== ENCOUNTER 2019-06-26 22:20 | Observation (INO) | payer MEDICAID ==
[2019-06-26] MEDS ORDERED: LACTATED RINGERS 1,000 ML ONE (23:22)
[2019-06-26 23:31] LABS: Bilirubin,Urine NEG (Negative); Blood,Urine NEG (Negative); Color,Urine Yellow (Yellow); Mucus,Urine 1+ /HPF
[2019-06-27] MEDS ORDERED: BRETHINE SUB-Q PRN (00:14)
[2019-06-27] MEDS ORDERED: XYLOCAINE 2% INFILTRATI ONE (00:14)
[2019-06-27] MEDS ORDERED: PHENERGAN PO PRN (00:14)
[2019-06-27] MEDS ORDERED: ZOFRAN IV PRN (00:14)
[2019-06-27] MEDS ORDERED: BRETHINE IVP PRN (00:14)
[2019-06-27] MEDS ORDERED: NARCAN 0.4 MG/1 ML IV PRN (00:14)
[2019-06-27] MEDS ORDERED: MINERAL OIL PO PRN (00:14)
[2019-06-27] MEDS: LACTATED RINGERS 1,000 ML IV SCH ×2 (00:52→06:24)
[2019-06-27] MEDS: SUBLIMAZE IV PRN ×3 (00:52→05:20)
[2019-06-27 00:54] LABS: Hematocrit 23.4 % (30.3-42.9); Hemoglobin 7.3 gm/dl (10.1-14.3); Mean Corpuscular HGB Conc 31 % (30-34); Mean Corpuscular Volume 73 fl (79-97); Platelet Count 180 K/mm3 (140-440); Red Blood Count 3.21 M/mm3 (3.65-5.03)
[2019-06-27] MEDS ORDERED: PITOCin/NS 30 UNIT/500ML 30 UNITS/500 ML BAG IV SCH ×2 (01:00)
[2019-06-27] MEDS ORDERED: PITOCin/NS 20 UNIT/1000ML DRIP 20 UNITS/1,000 ML BAG IV SCH (01:00)
--- NOTE | 2019-06-27 08:45 | History and Physical Report ---
History of Present Illness Date of examination: 06/27/19 Date of admission: 06/27/19 00:14 Chief complaint: contractions History of present illness: Pt is a 23 year old -[place] female KAYLIE 07/19/19 at 36w6d who presents with contractions and vaginal spotting since last night. The patient was noted to change her cervix from 1 cm to 3 cm, but her cervix has remained 3 cm overnight. She has had care at [facility] since 21 wks complicated by late entry to care, grandmultiparity, anemia s/p Hematology referral and iron supplementation, h/o fall this , h/o abruption this that has resolved. Her GBS status is negative. Around 2300PM 06/26/19 pt had one late deceleration. NST reviewed, without evidence of pattern of late decelerations. Past History Past Medical History: hematologic disorders (Anemia) Past Surgical History: D&C COURT MAGISTRATE History: chlamydia (remote history) Family/Genetic History: diabetes Social history: no significant social history - Obstetrical History Expected Date of Delivery: 07/19/19 Actual Gestation: 36 Week(s) 6 Day(s) : 7 Para: 5 Hx # Term Pregnancies: 4 Number of Pregnancies: 1 Spontaneous Abortions: 0 Induced : 1 Number of Living Children: 5 Medications and Allergies Allergies Allergy/AdvReac Type Severity Reaction Status Date / Time No Known Allergies Allergy Verified 05/16/19 16:55 Home Medications Medication Instructions Recorded Confirmed Last Taken Type Ferrous Sulfate [Iron 325 MG] 1 tab PO DAILY 06/26/19 06/26/19 06/26/19 History Vit-Fe Fumar-FA [ 1 tab PO DAILY 06/26/19 06/26/19 06/26/19 History Vitamin] Active Meds: Active Medications Butorphanol Tartrate (Stadol) 1 mg IV Q2H PRN PRN Reason: Pain, Moderate (4-6) Ephedrine Sulfate (Ephedrine Sulfate) 10 mg IV Q2M PRN PRN Reason: Hypotension Fentanyl (Sublimaze) 100 mcg IV Q2H PRN PRN Reason: Labor Pain Last Admin: 06/27/19 05:20 Dose: 100 mcg Documented by: Oxytocin/Sodium Chloride (Pitocin/Ns 20 Unit/1000ml Drip) 20 units in 1,000 mls @ 125 mls/hr IV DIRECT TRISTA Oxytocin/Sodium Chloride (Pitocin/Ns 30 Unit/500ml) 30 units in 500 mls @ 1 mls /hr IV TITR TRISTA; Protocol Oxytocin/Sodium Chloride (Pitocin/Ns 30 Unit/500ml) 30 units in 500 mls @ 2 mls/hr IV TITR TRISTA; Protocol Last Titration: 06/27/19 08:00 Dose: 0 ml/hr, 0 mls/hr Documented by: Lactated Ringer's (Lactated Ringers) 1,000 mls @ 125 mls/hr IV DIRECT TRISTA Last Admin: 06/27/19 06:24 Dose: 125 mls/hr Documented by: Mineral Oil (Mineral Oil) 30 ml PO QHS PRN PRN Reason: Constipation Naloxone HCl (Narcan 0.4 Mg/1 Ml) 0.1 mg IV Q2MIN PRN PRN Reason: Res Rate </= 8 or 02 SAT < 92% Ondansetron HCl (Zofran) 4 mg IV Q8H PRN PRN Reason: Nausea And Vomiting Promethazine HCl (Phenergan) 25 mg PO Q6H PRN PRN Reason: Nausea And Vomiting Terbutaline Sulfate (Brethine) 0.25 mg SUB-Q ONCE PRN PRN Reason: Hyperstimulation/Hypertonicity Terbutaline Sulfate (Brethine) 0.25 mg IVP ONCE PRN PRN Reason: Hyperstimulation/Hypertonicity Review of Systems All systems: negative - Vital Signs Vital signs: Vital Signs Temp Pulse Resp BP 99.0 F 99 H 18 109/68 06/26/19 22:40 06/26/19 22:40 06/26/19 22:40 06/26/19 22:40 Temp Pulse Resp BP Pulse Ox 97.6 F 88 18 104/56 100 06/27/19 07:13 06/27/19 08:17 06/27/19 07:13 06/27/19 07:49 06/27/19 08:17 - Physical Exam Breasts: Positive: deferred Cardiovascular: Regular rate Lungs: Positive: Clear to auscultation Abdomen: Positive: soft (gravid ) Genitourinary (Female): Positive: normal external genitalia Uterus: Positive: enlarged (gravid) Extremities: Positive: normal - Obstetrical FHR: auscultation normal Uterine Contraction Monitor Mode: External Cervical Dilatation: 3 (posterior) Cervical Effacement Percentage: 50 station: -3 Uterine Contraction Pattern: Irregular Uterine Tone Measurement Phase: Resting Uterine Contraction Intensity: Mild Results Result Diagrams: 06/27/19 23:30 Abnormal lab results 06/26/19 06/27/19 Range/Units 22:58 23:30 RBC 3.21 L (3.65-5.03) M/mm3 Hgb 7.3 L (10.1-14.3) gm/dl Hct 23.4 L (30.3-42.9) % MCV 73 L (79-97) fl MCH 23 L (28-32) pg RDW 19.0 H (13.2-15.2) % U Epithel Cells (Auto) 27.0 H (0-13.0) /HPF All other labs normal. Assessment and Plan A: IUP at 36w6d contractions- rule out labor One late deceleration during hospitalization Anemia Grandmultiparity GBS Negative P: Admit to antepartum service Discontinue pitocin and observe contraction pattern Serial cervical exams Biophysical Profile for well being Closely monitor clinical status
--- NOTE | 2019-06-27 09:43 | Ultrasound Report ---
ULTRASOUND BIOPHYSICAL PROFILE ULTRASOUND OB LIMITED INDICATION: well being, evaluate amniotic fluid TECHNIQUE: Transabdominal ultrasound imaging. COMPARISON: 06/14/2019 FINDINGS: breathing movement = 2 Gross body movement = 2 tone = 2 Qualitative amniotic fluid volume = 2 Total biophysical score = 8/8 Amniotic fluid index is 11.4 cm. Presentation is cephalic. heart rate is 136 beats per minute. IMPRESSION: biophysical profile equals 8/8. Signer Name: Gabe Berg Jr, MD Signed: 06/27/2019 9:39 AM Workstation Name: [id number]
[2019-06-27] MEDS ORDERED: AMBIEN PO PRN (17:40)
[2019-06-27] MEDS: STADOL IV PRN (22:33)
[2019-06-28] MEDS: STADOL IV PRN (02:49)
[2019-06-28 04:18] VITALS: BP 103/54
--- NOTE | 2019-06-28 07:08 | Progress Note ---
Assessment and Plan - Patient Problems (1) contractions Current Visit: No Status: Acute Plan to address problem: remains clinically stable discharge home Subjective - Subjective Date of service: 06/28/19 Principal diagnosis: contractions Interval history: Patient has had minimal contractions overnight. She still believes she should stay admitted despite not having cervical change. Cervix rechecked this am and is unchanged. Patient reports: no new complaints Objective - Vital Signs Vital Signs: Vital Signs - 12hr 06/27/19 06/27/19 06/27/19 19:53 20:01 20:03 Temperature 98.4 F Pulse Rate 93 H 93 H 91 H Respiratory 16 Rate Blood Pressure 89/53 89/55 Blood Pressure 89/55 [Left] O2 Sat by Pulse 100 Oximetry 06/27/19 06/28/19 06/28/19 22:56 00:33 04:17 Temperature Pulse Rate 78 60 60 Respiratory Rate Blood Pressure 105/67 99/55 103/54 Blood Pressure [Left] O2 Sat by Pulse Oximetry - Exam Cervical Dilatation: 3 - Labs Labs: Abnormal Labs 06/26/19 06/27/19 22:58 23:30 RBC 3.21 L Hgb 7.3 L Hct 23.4 L MCV 73 L MCH 23 L RDW 19.0 H U Epithel Cells (Auto) 27.0 H Laboratory Results - last 24 hr 06/27/19 06/27/19 23:30 23:30 RPR Nonreactive Blood Type B POSITIVE Antibody Screen Negative
--- NOTE | 2019-06-28 07:22 | Discharge Summary ---
Providers - Providers Date of Admission: 06/27/19 00:14 Date of discharge: 06/28/19 Attending physician: BLAIRE MAYA Primary care physician: BLAIRE MAYA Hospitalization Reason for admission: labor Discharge diagnosis: other ( contractions) Hospital course: Patient admitted with contractions. The patient was observed and had ce rvical change to 3cm however remained stable without any further change. The patient was observed with continuous monitoring with minimal contractions. Patient discharged home. Condition at discharge: Good Disposition: DC-01 TO HOME OR SELFCARE - Discharge Diagnoses (1) contractions Status: Acute Plan - Provider Discharge Summary Activity: no sex for 6 weeks, no heavy lifting 4 weeks, no strenuous exercise Diet: routine Instructions: routine Additional instructions: [] Smoking cessation referral if applicable(refer to patient education folder for contact #) [] Refer to [facility] Booklet Call your doctor immediately for: * Fever > 100.5 * Heavy vaginal bleeding ( >1 pad per hour) * Severe persistent headache * Shortness of breath * Reddened, hot, painful area to leg or breast * followup in one week - Follow up plan
== END 2019-06-28 08:42 | disposition home or self-care (01) ==
LOC: TRG 22:20 → LD 06-27 00:14
PROVIDERS: ADMIT Obstetrics & Gynecology; ATTEND Obstetrics & Gynecology
DX: O62.9 Abnormality of forces of labor, unspecified (principal); O26.853 Spotting complicating pregnancy, third trimester; Z3A.36 36 weeks gestation of pregnancy
CPT/HCPCS: 36415; 76815; 76819; 81001; 85027; 86592; 86850; 86900; 86901; 96374; 96375; 96376; G0378; J0595; J2590; J3010; J7120

== ENCOUNTER 2019-12-11 01:18 | Emergency (ER) | payer SELFPAY ==
[2019-12-11 03:01] VITALS: BP 103/59
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
== END 2019-12-11 05:11 | disposition home or self-care (01) ==
LOC: ED 01:18
DX: O30.002 Twin pregnancy, unspecified number of placenta and unspecified number of amniotic sacs, second trimester (principal); O9A.212 Injury, poisoning and certain other consequences of external causes complicating pregnancy, second trimester; S39.092A Other injury of muscle, fascia and tendon of lower back, initial encounter; Z3A.00 Weeks of gestation of pregnancy not specified; Y08.89XA Assault by other specified means, initial encounter; Y93.89 Activity, other specified; Y92.89 Other specified places as the place of occurrence of the external cause; Y99.8 Other external cause status
CPT/HCPCS: 99282; 99283

== ENCOUNTER 2020-07-30 04:33 | Emergency (ER) | payer MEDICAID ==
[2020-07-30 05:18] VITALS: BP 120/65
[2020-07-30 08:23] LABS: Bacteria,Urine 1+ /HPF (Negative); Bilirubin,Urine NEG (Negative); Blood,Urine NEG (Negative); Color,Urine Yellow (Yellow); Mucus,Urine 3+ /HPF; Protein,Urine <15 mg/dL mg/dL (Negative)
[2020-07-30 08:38] LABS: HCG Qualitative,Urine Negative (Negative)
--- NOTE | 2020-07-30 09:30 | XRay Report ---
CHEST 2 VIEWS INDICATION / CLINICAL INFORMATION: cough. COMPARISON: 02/13/2019. FINDINGS: SUPPORT DEVICES: None. HEART / MEDIASTINUM: No significant abnormality. LUNGS / PLEURA: No significant pulmonary or pleural abnormality. No pneumothorax. ADDITIONAL FINDINGS: No significant additional findings. IMPRESSION: No acute cardiopulmonary abnormality. Signer Name: Harvey Fine MD Signed: 07/30/2020 9:25 AM Workstation Name: [id number]
--- NOTE | 2020-07-30 10:45 | Emergency Department Report ---
- General Chief Complaint: Urogenital-Female Stated Complaint: COUGH/DISCHARGE/RUNNING NOSE Time Seen by Provider: 07/30/20 09:16 Source: patient Mode of arrival: Ambulatory Limitations: No Limitations - History of Present Illness MD Complaint: cough, rhinorrhea, nasal congestion -: week(s) Severity: mild Quality: dull Consistency: constant Improves With: nothing Worsens With: nothing Context: sick contacts Associated Symptoms: chills, rhinorrhea, nasal congestion, sore throat, cough. denies: weight loss - Related Data Home Medications Medication Instructions Recorded Confirmed Last Taken Ferrous Sulfate [Iron 325 MG] 1 tab PO DAILY 06/26/19 07/06/19 07/05/19 Vit-Fe Fumar-FA [ 1 tab PO DAILY 06/26/19 07/06/19 07/05/19 Vitamin] Previous Rx's Medication Instructions Recorded Last Taken Type Docusate Sodium [Colace] 100 mg PO BID PRN #60 capsule 07/07/19 Unknown Rx Ferrous Sulfate [Feosol 325 MG tab] 325 mg PO TID #90 tablet 07/07/19 Unknown Rx Ibuprofen [Motrin] 800 mg PO Q8HR PRN #30 tablet 07/07/19 Unknown Rx oxyCODONE /ACETAMINOPHEN [Percocet 1 tab PO Q6HR PRN #40 tablet 07/07/19 Unknown Rx 5/325] Albuterol Mdi (or & Nicu Only) 1 puff IH Q4-6H PRN #1 inha 07/30/20 Unknown Rx [ProAir HFA Inhaler] Azithromycin [Zithromax] 500 mg PO QDAY #5 tablet 07/30/20 Unknown Rx guaiFENesin/CODEINE [Robitussin AC] 5 ml PO Q6H PRN #120 ml 07/30/20 Unknown Rx Allergies Allergy/AdvReac Type Severity Reaction Status Date / Time No Known Allergies Allergy Verified 05/16/19 16:55 ED Review of Systems ROS: Stated complaint: COUGH/DISCHARGE/RUNNING NOSE Other details as noted in HPI Comment: All other systems reviewed and negative ED Past Medical Hx - Past Medical History Previous Medical History?: No Hx Hypertension: No Hx Heart Attack/AMI: No Hx Congestive Heart Failure: No Hx Diabetes: No Hx Deep Vein Thrombosis: No Hx Renal Disease: No Hx Sickle Cell Disease: No Hx Seizures: No Hx Asthma: No Hx COPD: No Hx HIV: No - Surgical History Past Surgical History?: Yes Hx Pacemaker: No Hx Internal Defibrillator: No Additional Surgical History: - Social History Smoking Status: Never Smoker Substance Use Type: None - Medications Home Medications: Home Medications Medication Instructions Recorded Confirmed Last Taken Type Ferrous Sulfate [Iron 325 MG] 1 tab PO DAILY 06/26/19 07/06/19 07/05/19 History Vit-Fe Fumar-FA [ 1 tab PO DAILY 06/26/19 07/06/19 07/05/19 History Vitamin] Docusate Sodium [Colace] 100 mg PO BID PRN #60 capsule 07/07/19 Unknown Rx Ferrous Sulfate [Feosol 325 MG tab] 325 mg PO TID #90 tablet 07/07/19 Unknown Rx Ibuprofen [Motrin] 800 mg PO Q8HR PRN #30 tablet 07/07/19 Unknown Rx oxyCODONE /ACETAMINOPHEN [Percocet 1 tab PO Q6HR PRN #40 tablet 07/07/19 Unknown Rx 5/325] Albuterol Mdi (or & Nicu Only) 1 puff IH Q4-6H PRN #1 inha 07/30/20 Unknown Rx [ProAir HFA Inhaler] Azithromycin [Zithromax] 500 mg PO QDAY #5 tablet 07/30/20 Unknown Rx guaiFENesin/CODEINE [Robitussin AC] 5 ml PO Q6H PRN #120 ml 07/30/20 Unknown Rx ED Physical Exam - General Limitations: No Limitations General appearance: alert, in no apparent distress - Head Head exam: Present: atraumatic, normocephalic - Eye Eye exam: Present: normal appearance, PERRL Pupils: Present: normal accommodation - ENT ENT exam: Present: normal exam, normal orophraynx, mucous membranes moist, TM's normal bilaterally, other (Nasal congestion sinus pressure and clear drainage) - Neck Neck exam: Present: normal inspection, full ROM - Respiratory Respiratory exam: Present: normal lung sounds bilaterally, rhonchi. Absent: respiratory distress, rales, accessory muscle use, decreased breath sounds - Cardiovascular Cardiovascular Exam: Present: regular rate, normal rhythm. Absent: systolic murmur, diastolic murmur, rubs, gallop - GI/Abdominal GI/Abdominal exam: Present: soft, normal bowel sounds - Extremities Exam Extremities exam: Present: normal inspection - Back Exam Back exam: Present: normal inspection - Neurological Exam Neurological exam: Present: alert, oriented X3 - Psychiatric Psychiatric exam: Present: normal affect, normal mood - Skin Skin exam: Present: warm, dry, intact, normal color. Absent: rash ED Course Vital Signs 07/30/20 05:12 Temperature 98.1 F Pulse Rate 84 Respiratory 20 Rate Blood Pressure 120/65 O2 Sat by Pulse 98 Oximetry ED Medical Decision Making - Medical Decision Making This patient presents with acute cough, most consistent with bronchitis. Differential diagnosis includes bronchitis, viral syndrome, hyperreactive airway disease, asthma, pneumonia. Presentation not consistent with acute bacterial pneumonia, influenza, asthma, transient airway hyperresponsiveness. Presentation not consistent with chronic causes of cough (including GERD, asthma, postnasal discharge, medication side effect, CHF, lung cancer or mass). Normal CXR Plan: , supportive care, reassess Critical care attestation.: If time is entered above; I have spent that time in minutes in the direct care of this critically ill patient, excluding procedure time. ED Disposition Clinical Impression: Bronchitis Disposition: [id number] TO HOME OR SELFCARE Is pt being admited?: No Does the pt Need Aspirin: No Condition: Stable Instructions: Chronic Bronchitis (ED), Acute Bronchitis, Adult, Cough, Adult, [id number] Referrals: PRIMARY CARE, [Primary Care Provider] - 3-5 Days [facility] [Provider Group] - 3-5 Days
== END 2020-07-30 10:57 | disposition home or self-care (01) ==
LOC: ED 04:33
DX: J40 Bronchitis, not specified as acute or chronic (principal); Z79.899 Other long term (current) drug therapy; Z98.890 Other specified postprocedural states
CPT/HCPCS: 71046; 81001; 81025